=== PATIENT | male | born 2000 | race Caucasian/White ===

== ENCOUNTER 2022-10-12 19:49 | Emergency (ER) | payer OTHER ==
[2022-10-12 19:56] VITALS: TEMP 98.1
[2022-10-12] MEDS ORDERED: KETOROLAC 15 MG/ML 1 ML VIAL IVP STA (20:44)
[2022-10-12] MEDS ORDERED: ONDANSETRON 4 MG/2 ML VIAL IVP STA (20:44)
[2022-10-12] MEDS ORDERED: SODIUM CHLORIDE 0.9% 1,000 ML IV STA (20:44)
--- NOTE | 2022-10-12 20:53 | ED ---
Abdominal Pain HPI - General Chief Complaint: Abdominal Pain Stated Complaint: abd pain severe Time Seen by Provider: 10/12/22 20:35 Source: patient, RN notes reviewed Mode of arrival: ambulatory Limitations: no limitations - History of Present Illness Initial Comments: This is a 22-year-old male who presents to the emergency department for right flank and right lower quadrant pain. Patient states that this started yesterday. He reports associated loose don colored stools and orange appearing urine with dysuria. The only time that he has ever experienced pain like this was when he had his appendix removed. Also reports associated nausea and vo miting. Believes that he was just walking around when the pain started. Unsure if this was related to anything he had to eat. Denies any fevers, chills, sore throat, cough, dyspnea, chest pain, palpitations, or headaches. MD Complaint: abdominal pain, flank pain Onset/Timin -: days(s) Location: R flank Radiation: RLQ Associated Symptoms: nausea, vomiting, diarrhea, dysuria - Related Data Home Medications Medication Instructions Recorded Confirmed Melatonin 1 mg PO HS 10/12/22 10/12/22 Previous Rx's Medication Instructions Recorded levETIRAcetam [Keppra] 500 mg PO Q12HR 30 Days #60 tab 09/12/22 Dicyclomine [Bentyl] 10 mg PO QID PRN #20 capsule 10/13/22 Ondansetron Odt [Zofran Odt] 4 mg PO Q8HR PRN #15 tab 10/13/22 Allergies Allergy/AdvReac Type Severity Reaction Status Date / Time amoxicillin Allergy Anaphylaxis Verified 10/12/22 21:42 lavender (Lavandula Allergy Anaphylaxis Verified 10/12/22 21:42 angustifolia) Penicillins Allergy Anaphylaxis Verified 10/12/22 21:42 shellfish derived [Shellfish] Allergy Anaphylaxis Verified 10/12/22 21:42 Review of Systems ROS Statement: Those systems with pertinent positive or pertinent negative responses have been documented in the HPI. ROS Other: All systems not noted in ROS Statement are negative. Past Medical History Past Medical History: Seizure Disorder Additional Past Medical History / Comment(s): possibly epilepsy History of Any Multi-Drug Resistant Organisms: None Reported Past Surgical History: Appendectomy, Orthopedic Surgery Additional Past Surgical History / Comment(s): broken jaw wired Past Anesthesia/Blood Transfusion Reactions: Previous Problems w/ Anesthesia Past Psychological History: ADD/ADHD, Anxiety, Bipolar, Depression, Schizophrenia Smoking Status: Current every day smoker, Vaper Past Alcohol Use History: Rare Past Drug Use History: Marijuana - Past Family History Mother Family Medical History: Blood Disorder General Exam Limitations: no limitations General appearance: alert, in no apparent distress Head exam: Present: atraumatic, normocephalic, normal inspection Respiratory exam: Present: normal lung sounds bilaterally. Absent: respiratory distress, wheezes, rales, rhonchi, stridor Cardiovascular Exam: Present: regular rate, normal rhythm, normal heart sounds. Absent: systolic murmur, diastolic murmur, rubs, gallop, clicks GI/Abdominal exam: Present: soft, tenderness (Right upper quadrant, right mid abdomen, and right lower quadrant), normal bowel sounds. Absent: distended, guarding, rebound, rigid Neurological exam: Present: alert, oriented X3, CN II-XII intact Psychiatric exam: Present: normal affect, normal mood Skin exam: Present: warm, dry, intact, normal color. Absent: rash Course Vital Signs 10/12/22 10/13/22 19:52 01:39 Temperature 98.1 F Pulse Rate 115 H 79 Respiratory 18 16 Rate Blood Pressure 98/68 115/64 O2 Sat by Pulse 98 96 Oximetry Medical Decision Making - Medical Decision Making This is a 22-year-old male who presents to the emergency department for right flank and right mid to lower abdominal pain. Was pt. sent in by a medical professional or institution? @ -No Did you speak to anyone other than the patient for history? @ -His significant other Did you review nursing and triage notes? @ -Yes, and I agree, it is accurate with regards to the patient's symptoms. Were old charts reviewed? @ -No Differential Diagnosis? @ -Differential Abdominal Pain Men: Appendicitis, cholecystitis, diverticulosis, ischemic bowel, pancreatitis, hepatitis, UTI, gastroenteritis, AAA, incarcerated hernia, bowel obstruction, constipation, inflammatory bowel, hepatitis, peptic ulcer disease, splenic infarction, perforated viscus, testicular torsion, this is not meant to be an all-inclusive list CT interpreted by me (1pt min.)? @ -Computed tomography scan of the abdomen and pelvis obtained. My interpretation identifies no evidence of bowel wall thickening or ureteral calculus. U/S interpreted by me (1pt. min.)? @ -Gallbladder ultrasound obtained. My interpretation identifies no evidence of cholelithiasis or gallbladder wall thickening. What testing was considered but not performed? (CT, X-rays, U/S, labs)? Why? @ -None What meds were considered but not given? Why? @ -None Did you discuss the management of the patient with other professionals? @ -No Did you reconcile home meds? @ -No Was smoking cessation discussed for >3mins.? @ -No Was critical care preformed (if so, how long)? @ -No Were there social determinants of health that impacted care today? How? (Homelessness, low income, unemployed, alcoholism, drug addiction, transportation, low edu. Level, literacy, decrease access to med. care, shelter, rehab)? @ -No Was there de-escalation of care discussed even if they declined? (Discuss DNR or withdrawal of care, Hospice)? @ -No What co-morbidities impacted this encounter? (DM, HTN, Smoking, COPD, CAD, Ca ncer, CVA, Hep., AIDS, mental health diagnosis, sleep apnea, morbid obesity)? @ -Morbid obesity Was patient admitted / discharged? @ -Discharged. Lab work obtained and found to be nonactionable. Computed tomography scan of the abdomen and pelvis obtained initially due to suspicion of kidney stone. This revealed no evidence of a kidney stone or other acute findings. Gallbladder ultrasound was then obtained, as cholecystitis or cholelithiasis was also on the differential. This again revealed no acute process. His pain was not controlled with IV fluids, Toradol, and morphine. We then tried a GI cocktail, which again offered no improvement to his symptoms. Finally, Norflex and Dilaudid were provided, which only offered minor relief. Despite the patient continuing to complain of pain, he was not exhibiting any signs of distress and was sleeping in the bed playing video games. Discussed with the patient that we do not have a clear cause for his symptoms at this point. This may be related to a gas buildup, gastroenteritis, or a muscular problem. Prescriptions for Bentyl and Zofran provided with dosing instructions reviewed. Recommended he also alternate with Ibuprofen and Tylenol. He is advised to become established with a primary care provider for ongoing medical management. He was given information on discharge paperwork for several local primary care providers. He was also given information for gastroenterology follow-up if symptoms do not improve. Discussed that he may benefit from a HIDA scan in the event he has poor gallbladder function. Undiagnosed new problem with uncertain prognosis? @ -None Drug Therapy requiring intensive monitoring for toxicity (Heparin, Nitro, Insulin, Cardizem)? @ -None Were any procedures done? @ -None Diagnosis/symptom? @ -Abdominal pain Acute, or Chronic, or Acute on Chronic? @ -Acute Uncomplicated (without systemic symptoms) or Complicated (systemic symptoms)? @ -Uncomplicated Side effects of treatment? @ -None Exacerbation, Progression, or Severe Exacerbation] @ -Not applicable Poses a threat to life or bodily function? @ -No Return precautions reviewed in depth, the patient is instructed to return to the emergency department with any new, worsening, or concerning symptoms. Patient verbalized understanding. This case was discussed in detail with the attending ED physician, Dr. Randle. Presentation, findings, and treatment plan discussed in detail as well. - Lab Data Result diagrams: 10/12/22 21:37 10/12/22 21:37 Lab Results 10/12/22 10/12/22 10/12/22 Range/Units 00:35 21:37 21:37 WBC 6.9 (3.8-10.6) k/uL RBC 5.92 H (4.30-5.90) m/uL Hgb 17.6 H (13.0-17.5) gm/dL Hct 50.6 (39.0-53.0) % MCV 85.5 (80.0-100.0) fL MCH 29.8 (25.0-35.0) pg MCHC 34.8 (31.0-37.0) g/dL RDW 12.8 (11.5-15.5) % Plt Count 309 (150-450) k/uL MPV 6.9 Neutrophils % 59 % Lymphocytes % 30 % Monocytes % 6 % Eosinophils % 3 % Basophils % 1 % Neutrophils # 4.1 (1.3-7.7) k/uL Lymphocytes # 2.1 (1.0-4.8) k/uL Monocytes # 0.4 (0-1.0) k/uL Eosinophils # 0.2 (0-0.7) k/uL Basophils # 0.0 (0-0.2) k/uL Sodium 141 (137-145) mmol/L Potassium 4.3 (3.5-5.1) mmol/L Chloride 109 H (98-107) mmol/L Carbon Dioxide 23 (22-30) mmol/L Anion Gap 9 mmol/L BUN 14 (9-20) mg/dL Creatinine 0.98 (0.66-1.25) mg/dL Est GFR (CKD-EPI)AfAm >90 (>60 ml/min/1.73 sqM) Est GFR (CKD-EPI)NonAf >90 (>60 ml/min/1.73 sqM) Glucose 87 (74-99) mg/dL Plasma Lactic Acid Efrain (0.7-2.0) mmol/L Calcium 8.9 (8.4-10.2) mg/dL Total Bilirubin 0.6 (0.2-1.3) mg/dL AST 36 (17-59) U/L ALT 70 H (4-49) U/L Alkaline Phosphatase 68 (38-126) U/L Total Protein 6.7 (6.3-8.2) g/dL Albumin 4.0 (3.5-5.0) g/dL Amylase 55 (30-110) U/L Lipase 58 (23-300) U/L Urine Color Yellow Urine Appearance Clear (Clear) Urine pH 6.5 (5.0-8.0) Ur Specific Almond 1.029 (1.001-1.035) Urine Protein Trace H (Negative) Urine Glucose (UA) Negative (Negative) Urine Ketones Negative (Negative) Urine Blood Negative (Negative) Urine Nitrite Negative (Negative) Urine Bilirubin Negative (Negative) Urine Urobilinogen 2.0 (<2.0) mg/dL Ur Leukocyte Esterase Negative (Negative) 10/12/22 Range/Units 21:37 WBC (3.8-10.6) k/uL RBC (4.30-5.90) m/uL Hgb (13.0-17.5) gm/dL Hct (39.0-53.0) % MCV (80.0-100.0) fL MCH (25.0-35.0) pg MCHC (31.0-37.0) g/dL RDW (11.5-15.5) % Plt Count (150-450) k/uL MPV Neutrophils % % Lymphocytes % % Monocytes % % Eosinophils % % Basophils % % Neutrophils # (1.3-7.7) k/uL Lymphocytes # (1.0-4.8) k/uL Monocytes # (0-1.0) k/uL Eosinophils # (0-0.7) k/uL Basophils # (0-0.2) k/uL Sodium (137-145) mmol/L Potassium (3.5-5.1) mmol/L Chloride (98-107) mmol/L Carbon Dioxide (22-30) mmol/L Anion Gap mmol/L BUN (9-20) mg/dL Creatinine (0.66-1.25) mg/dL Est GFR (CKD-EPI)AfAm (>60 ml/min/1.73 sqM) Est GFR (CKD-EPI)NonAf (>60 ml/min/1.73 sqM) Glucose (74-99) mg/dL Plasma Lactic Acid Efrain 1.5 (0.7-2.0) mmol/L Calcium (8.4-10.2) mg/dL Total Bilirubin (0.2-1.3) mg/dL AST (17-59) U/L ALT (4-49) U/L Alkaline Phosphatase (38-126) U/L Total Protein (6.3-8.2) g/dL Albumin (3.5-5.0) g/dL Amylase (30-110) U/L Lipase (23-300) U/L Urine Color Urine Appearance (Clear) Urine pH (5.0-8.0) Ur Specific Almond (1.001-1.035) Urine Protein (Negative) Urine Glucose (UA) (Negative) Urine Ketones (Negative) Urine Blood (Negative) Urine Nitrite (Negative) Urine Bilirubin (Negative) Urine Urobilinogen (<2.0) mg/dL Ur Leukocyte Esterase (Negative) - Radiology Data Radiology results: report reviewed, image reviewed Disposition Clinical Impression: Abdominal pain Disposition: HOME SELF-CARE Instructions (If sedation given, give patient instructions): Abdominal Pain (ED) Additional Instructions: Return to the emergency department with any new, worsening, or concerning symptoms. You can try taking the Bentyl up to 4 times daily as needed for abdominal pain. Take the Zofran every 8 hours as needed for nausea and vomiting. He can also purchase an [id number] antidiarrheal medication like Imodium. Contact Dr. Tumma, gastroenterology, as listed below first thing tomorrow morning for a follow-up appointment and reevaluation of ongoing symptoms. You also need to become established with a primary care provider for ongoing management of your health. I have listed several primary care providers below who you can contact. Prescriptions: Dicyclomine [Bentyl] 10 mg PO QID PRN #20 capsule PRN Reason: Pain Ondansetron Odt [Zofran Odt] 4 mg PO Q8HR PRN #15 tab PRN Reason: Nausea And Vomiting Is patient prescribed a controlled substance at d/c from ED?: No Referrals: None,Stated [Primary Care Provider] - 1-2 days Myriam Vila MD [STAFF PHYSICIAN] - 1-2 days Michelle Delacruz MD [REFERRING] - 1-2 days Erica Gonzalez MD [STAFF PHYSICIAN] - 1-2 days Jose Manuel Jr, DO [Doctor of Osteopathic Medicine] - 1-2 days Dee Dey NPC [STAFF PHYSICIAN] - 1-2 days Rossy Burnette DO [REFERRING] - 1-2 days Kolton Bass DO [STAFF PHYSICIAN] - 1-2 days
[2022-10-12 22:12] LABS: Basophils % (A) 1 %; Eosinophils # (A) 0.2 k/uL (0-0.7); Eosinophils % (A) 3 %; HCT 50.6 % (39.0-53.0); HGB 17.6 gm/dL (13.0-17.5); Lymphocytes # (A) 2.1 k/uL (1.0-4.8); Lymphocytes % (A) 30 %; MCH 29.8 pg (25.0-35.0); MCHC 34.8 g/dL (31.0-37.0); MCV 85.5 fL (80.0-100.0); Mean Platelet Volume 6.9; Monocytes # (A) 0.4 k/uL (0-1.0); Monocytes % (A) 6 %; Neutrophils # (A) 4.1 k/uL (1.3-7.7); Neutrophils % (A) 59 %; Platelet Count 309 k/uL (150-450); RBC 5.92 m/uL (4.30-5.90); RDW 12.8 % (11.5-15.5); WBC 6.9 k/uL (3.8-10.6)
[2022-10-12 22:38] LABS: ALT 70 U/L (4-49); AST 36 U/L (17-59); African American GFR (CKD) >90 (>60 ml/min/1.73 sqM); Alkaline Phosphatase 68 U/L (38-126); Amylase 55 U/L (30-110); Anion Gap 9 mmol/L; Blood Urea Nitrogen 14 mg/dL (9-20); Calcium 8.9 mg/dL (8.4-10.2); Carbon Dioxide 23 mmol/L (22-30); Chloride 109 mmol/L (98-107); Glucose 87 mg/dL (74-99); Lipase 58 U/L (23-300); Non-African American GFR(CKD) >90 (>60 ml/min/1.73 sqM); Potassium 4.3 mmol/L (3.5-5.1); Sodium 141 mmol/L (137-145); Total Bilirubin 0.6 mg/dL (0.2-1.3); Total Protein 6.7 g/dL (6.3-8.2)
--- NOTE | 2022-10-12 22:49 | CT ---
EXAMINATION TYPE: CT abdomen pelvis wo con DATE OF EXAM: 10/12/2022 COMPARISON: None HISTORY: RLQ pain. hx of appendectomy CT DLP: 1066.5 mGycm Automated exposure control for dose reduction was used. Images obtained from the diaphragm to the floor the pelvis with no contrast The lung bases are clear. No pleural effusion. Heart size is normal. No pericardial effusion. Liver s pleen and stomach pancreas and gallbladder appear intact. The bile ducts are not dilated. There is no adrenal mass kidney show normal size and contour. No hydronephrosis. Ureters are not dila bernadette. No retroperitoneal adenopathy. There are clips from appendectomy. The bladder distends smoothly. No inguinal hernia. No evidence of a pelvic mass. No free fluid in the pelvis. The lumbar vertebra have normal alignment. Posterior elements are intact. No compression fracture. Th e bony pelvis is intact. The hip joints are intact. Sacroiliac joints are intact. There is no mesenteric edema. No ascites or free air. No sign of a bowel obstruction. Small bowel pat tern is normal. No intestinal wall thickening. There is 2 cm fat-containing umbilical hernia IMPRESSION: Negative CT scan abdomen and pelvis.
[2022-10-12] MEDS ORDERED: DIPH,PERTUS(ACELL)TETVAC-LF 0.5 ML VIAL IM ONE (22:56)
[2022-10-12] MEDS ORDERED: MORPHINE SULFATE 2 MG/ML SYRINGE IVP STA (22:58)
--- NOTE | 2022-10-12 23:30 | US ---
EXAMINATION TYPE: US gallbladder DATE OF EXAM: 10/12/2022 COMPARISON: CT:Today CLINICAL HISTORY: RUQ pain. RUQ pain. Pt states he has been NPO x 5 hours TECHNIQUE: Multiple sonographic images of the right upper quadrant are obtained. FINDINGS: EXAM MEASUREMENTS: Liver Length: 15.9 cm Gallbladder Wall: 0.52 cm CBD: 0.3 cm Right Kidney: 11.1 x 4.8 x 4.9 cm PREVENTIVE MEDICINE OFFICER NOTES: Pancreas: Only head visible. Appears wnl Liver: Heterogeneous Gallbladder: Contracted Evidence for sonographic Anderson's sign: No CBD: wnl Right Kidney: wnl IMPRESSION: Contracted gallbladder. No gallstones or dilated ducts. No focal liver defect.
[2022-10-12] MEDS ORDERED: MAG HYDROX/AL HYDROX/SIMETH 30 ML, HYOSCYAMINE ELIXIR 10 ML, LIDOCAINE VISCOUS 2% 10 ML PO STA ×3 (23:32)
[2022-10-13] MEDS ORDERED: ORPHENADRINE 30 MG/ML 2 ML VIAL IVP STA (00:27)
[2022-10-13] MEDS ORDERED: HYDROmorphone 0.5 MG/0.5 ML SYRINGE IVP STA (00:27)
[2022-10-13 00:52] LABS: Appearance,Urine Clear (Clear); Bilirubin,Urine Negative (Negative); Blood,Urine Negative (Negative); Color,Urine Yellow; Glucose,Urine (UA) Negative (Negative); Ketones,Urine Negative (Negative); Leukocyte Esterase,Urine Negative (Negative); Nitrite,Urine Negative (Negative); PH, Urine 6.5 (5.0-8.0); Protein,Urine Trace (Negative); Specific Gravity,Urine 1.029 (1.001-1.035)
[2022-10-13] MEDS ORDERED: traMADol 50 MG STARTER PACK 3 TAB BTL PO STA (00:55)
[2022-10-13] MEDS ORDERED: ONDANSETRON 4 MG ODT STARTER PACK 2 TAB BTL PO STA (00:55)
[2022-10-13] MEDS ORDERED: IBUPROFEN 600 MG STARTER PACK 4 TAB BTL PO STA (00:55)
[2022-10-13] MEDS ORDERED: DIPHENOX-ATROP STARTER PACK 8 TAB BTL PO STA (00:56)
[2022-10-13 01:40] VITALS: BP 115/64; PULSE 79; RESP 16
== END 2022-10-13 01:40 | disposition home or self-care (01) ==
LOC: EC 19:49
DX: R10.31 Right lower quadrant pain (principal); R10.11 Right upper quadrant pain; F17.290 Nicotine dependence, other tobacco product, uncomplicated; F12.90 Cannabis use, unspecified, uncomplicated; Z88.1 Allergy status to other antibiotic agents; Z88.0 Allergy status to penicillin; Z91.013 Allergy to seafood; Z91.048 Other nonmedicinal substance allergy status; Z90.89 Acquired absence of other organs
CPT/HCPCS: 80053; 82150; 83605; 83690; 85025; 76705; 74176; 99284; 96374; 96375 ×2; 96361; J2405; J2270; J1885; 36415; 81003

== ENCOUNTER 2022-10-17 23:59 | Emergency (ER) | payer OTHER ==
[2022-10-18 00:05] VITALS: TEMP 98.1
[2022-10-18] MEDS ORDERED: SODIUM CHLORIDE 0.9% 500 ML 500 ML IV STA (00:46)
[2022-10-18] MEDS ORDERED: diphenhydrAMINE 50 MG CAP PO STA (00:46)
[2022-10-18] MEDS ORDERED: FAMOTIDINE 20 MG/2 ML VIAL IV STA (00:46)
[2022-10-18] MEDS ORDERED: methylPREDNISolone SOD SUCCI 125 MG/2 ML VIAL IV STA (00:46)
--- NOTE | 2022-10-18 00:50 | ED ---
Allergic Reaction HPI - General Chief complaint: Allergic Reaction Stated complaint: Allergic Reaction, Difficulty Breathing Time Seen by Provider: 10/18/22 00:39 Source: patient, family, RN notes reviewed, old records reviewed Mode of arrival: ambulatory - History of Present Illness Initial Comments: This is a nontoxic-appearing 22-year-old male that presents to the emergency room with his girlfriend with complaints of ALLERGIC reaction after eating lobster about 3 hours prior to arrival. Patient states he developed abdominal pain with nausea and vomiting, facial rash, chest tightness and headache. He did not take any medication prior to arriving in the emergency room. States that his symptoms seem to be resolving without medication. Girlfriend at bedside states that she did notice a rash to his chest, neck and right side of his face which also seems to be nearly resolved. Patient denies any difficulty in breathing, complaining only of headache and eyes itching at this time. MD Complaint: allergic reaction -: hour(s) (3) Exposure: food (lobster) Symptoms: rash, itching, nausea, vomiting, other (headache), abdominal pain Severity: mild Treatment Prior to Arrival: none - Related Data Home Medications Medication Instructions Recorded Confirmed Melatonin 1 mg PO HS 10/12/22 10/12/22 Previous Rx's Medication Instructions Recorded levETIRAcetam [Keppra] 500 mg PO Q12HR 30 Days #60 tab 09/12/22 Dicyclomine [Bentyl] 10 mg PO QID PRN #20 capsule 10/13/22 Ondansetron Odt [Zofran Odt] 4 mg PO Q8HR PRN #15 tab 10/13/22 EPINEPHrine (Auto Inject) [Epipen] 0.3 mg IM ONCE PRN #1 each 10/18/22 Allergies Allergy/AdvReac Type Severity Reaction Status Date / Time amoxicillin Allergy Anaphylaxis Verified 10/18/22 00:05 lavender (Lavandula Allergy Anaphylaxis Verified 10/18/22 00:05 angustifolia) Penicillins Allergy Anaphylaxis Verified 10/18/22 00:05 shellfish derived [Shellfish] Allergy Anaphylaxis Verified 10/18/22 00:05 Review of Systems ROS Statement: Those systems with pertinent positive or pertinent negative responses have been documented in the HPI. ROS Other: All systems not noted in ROS Statement are negative. Past Medical History Past Medical History: Seizure Disorder Additional Past Medical History / Comment(s): possibly epilepsy History of Any Multi-Drug Resistant Organisms: None Reported Past Surgical History: Appendectomy, Orthopedic Surgery Additional Past Surgical History / Comment(s): broken jaw wired Past Anesthesia/Blood Transfusion Reactions: Previous Problems w/ Anesthesia Past Psychological History: ADD/ADHD, Anxiety, Bipolar, Depression, Schizophrenia Smoking Status: Current every day smoker, Vaper Past Alcohol Use History: Rare Past Drug Use History: Marijuana - Past Family History Mother Family Medical History: Blood Disorder General Exam Limitations: no limitations General appearance: alert, in no apparent distress Head exam: Present: atraumatic, normocephalic Eye exam: Present: normal appearance. Absent: scleral icterus, conjunctival injection, periorbital swelling, periorbital tenderness ENT exam: Present: normal oropharynx, mucous membranes moist Neck exam: Present: normal inspection, full ROM. Absent: tenderness, meningismus, lymphadenopathy Respiratory exam: Present: normal lung sounds bilaterally. Absent: respiratory distress, accessory muscle use Cardiovascular Exam: Present: tachycardia GI/Abdominal exam: Present: soft. Absent: distended, tenderness, guarding, rebound, rigid Extremities exam: Present: full ROM, normal capillary refill. Absent: tenderness, pedal edema, calf tenderness Back exam: Present: full ROM. Absent: tenderness, CVA tenderness (R), CVA tenderness (L), rash noted Neurological exam: Present: alert, oriented X3, normal gait Psychiatric exam: Present: normal affect, normal mood Skin exam: Present: warm, dry, intact, normal color, rash (hives to right side of neck and right chest wall). Absent: cyanosis, diaphoretic, erythema, vesic les, petechiae, pallor, mottled Course Vital Signs 10/18/22 10/18/22 10/18/22 00:02 00:38 00:39 Temperature 98.1 F Pulse Rate 131 H 108 H 92 Respiratory 26 H 20 18 Rate Blood Pressure 115/55 107/73 107/73 O2 Sat by Pulse 96 Oximetry 10/18/22 10/18/22 10/18/22 00:45 01:00 01:30 Temperature Pulse Rate 121 H 87 90 Respiratory 22 20 14 Rate Blood Pressure 107/73 103/73 132/99 O2 Sat by Pulse 96 Oximetry 10/18/22 02:00 Temperature Pulse Rate 84 Respiratory 16 Rate Blood Pressure 129/84 O2 Sat by Pulse 98 Oximetry Medical Decision Making - Medical Decision Making Patient presents with an ALLERGIC reaction after eating lobster today with a known seafood ALLERGY. He was given Benadryl, Pepcid and Solu-Medrol with IV fluids in the emergency room. Lung sounds are clear to auscultation, no stridor. Vital signs are stable. Abdomen soft and nontender. There is no evidence of tongue swelling or airway compromise. Vital signs remained stable throughout his stay in the emergency room. Patient states he has a history of seizure disorder. Medical records indicate he also has a history of schizophrenia, bipolar, anxiety, depression and ADHD. Patient states did have a recent inpatient stay for chest pain and according to records acute coronary event was ruled out. Anxiety with panic disorder was considered. Cardiology consult and echocardiogram was done 09/12/2022 showing normal left ventricular systolic function normal pericardium without effusion, chronic regurgitation knee no aortic regurgitation trace to mild tricuspid regurgitation Patient was watched in the emergency room with no complications. Discharged home with an EpiPen and directed to follow up with a primary care doctor. He states that he is in the process of getting a primary care doctor as he recently moved here from [place]. He was given 2 additional referrals for follow-up. Patient is and his girlfriend are agreeable to this plan of care. Case discussed with Dr. Julian. Was pt. sent in by a medical professional or institution (, PA, CARTOGRAPHY PROFESSOR, urgent care, hospital, or snf...) When possible be specific @ -No Did you speak to anyone other than the patient for history (EMS, parent, family, police, friend...)? What history was obtained from this source @ -patient's girlfriend at bedside Did you review nursing and triage notes (agree or disagree)? Why? @ -I reviewed and agree with nursing and triage notes Were old charts reviewed (outside hosp., previous admission, EMS record, old EKG, old radiological studies, urgent care reports/EKG's, snf records)? Report findings @ -yes as above Differential Diagnosis (chest pain, altered mental status, abdominal pain women, abdominal pain men, vaginal bleeding, weakness, fever, dyspnea, syncope, headache, dizziness, GI bleed, back pain, seizure, CVA, palpatations, mental health, musculoskeletal)? @ -ALLERGIC reaction, anaphylaxis, anxiety, gastroenteritis, viral illness, aspiration EKG interpreted by me (3pts min.). @ -n/a X-rays interpreted by me (1pt min.). @ -None done CT interpreted by me (1pt min.). @ -None done U/S interpreted by me (1pt. min.). @ -None done What testing was considered but not performed or refused? (CT, X-rays, U/S, labs)? Why? @ -None What meds were considered but not given or refused? Why? @ -None Did you discuss the management of the patient with other professionals (professionals i.e. Dr., PA, CARTOGRAPHY PROFESSOR, lab, RT, psych nurse, licensed social worker, blade bender furnace tender, teacher, human resource officer, piano case and bench assembler)? Give summary @ -No Was smoking cessation discussed for >3mins.? @ -No Was critical care preformed (if so, how long)? @ -No Were there social determinants of health that impacted care today? How? (Homelessness, low income, unemployed, alcoholism, drug addiction, transportation, low edu. Level, literacy, decrease access to med. care, nursing home, rehab)? @ -Patient states does not have a primary care doctor Was there de-escalation of care discussed even if they declined (Discuss DNR or withdrawal of care, Hospice)? DNR status @ -No What co-morbidities impacted this encounter? (DM, HTN, Smoking, COPD, CAD, Cancer, CVA, ARF, Chemo, Hep., AIDS, mental health diagnosis, sleep apnea, morbid obesity)? @ -seizure disorder, schizophrenia, bipolar, anxiety, depression and ADHD Was patient admitted / discharged? Hospital course, mention meds given and route, prescriptions, significant lab abnormalities, going to OR and other pertinent info. @ -Discharged Undiagnosed new problem with uncertain prognosis? @ -No Drug Therapy requiring intensive monitoring for toxicity (Heparin, Nitro, Insulin, Cardizem)? @ -No Were any procedures done? @ -No Diagnosis/symptom? @ -ALLERGIC reaction Acute, or Chronic, or Acute on Chronic? @ -Acute Uncomplicated (without systemic symptoms) or Complicated (systemic symptoms)? @ -Uncomplicated Side effects of treatment? @ -No Exacerbation, Progression, or Severe Exacerbation? @ -No Poses a threat to life or bodily function? How? (Chest pain, [place], AR, pneumonia, PE, COPD, DKA, ARF, appy, cholecystitis, CVA, Diverticulitis, Homicidal, Suicidal, threat to staff... and all critical care pts) @ -No Disposition Clinical Impression: Allergic reaction Disposition: HOME SELF-CARE Condition: Good Instructions (If sedation given, give patient instructions): Anaphylaxis (ED) Additional Instructions: Please use the EpiPen with any ALLERGIC reaction that causes shortness of breath, facial or tongue swelling then go to the nearest emergency room. Prescriptions: EPINEPHrine (Auto Inject) [Epipen] 0.3 mg IM ONCE PRN #1 each PRN Reason: Anaphylaxis Is patient prescribed a controlled substance at d/c from ED?: No Referrals: None,Stated [Primary Care Provider] - 1-2 days Reggie Fuller MD [STAFF PHYSICIAN] - 1-2 days Kierra Resendiz MD [REFERRING] - 1-2 days Time of Disposition: 01:55
[2022-10-18] MEDS ORDERED: diphenhydrAMINE 50 MG/ML 1 ML VIAL IVP STA (01:01)
[2022-10-18 02:09] VITALS: BP 129/84; PULSE 84; RESP 16
== END 2022-10-18 02:14 | disposition home or self-care (01) ==
LOC: EC 23:59
DX: T78.40XA Allergy, unspecified, initial encounter (principal); F90.9 Attention-deficit hyperactivity disorder, unspecified type; F41.9 Anxiety disorder, unspecified; F31.9 Bipolar disorder, unspecified; F17.290 Nicotine dependence, other tobacco product, uncomplicated; F12.90 Cannabis use, unspecified, uncomplicated; Z88.0 Allergy status to penicillin; Z88.6 Allergy status to analgesic agent; Z91.013 Allergy to seafood
CPT/HCPCS: 99284; 96374; 96375 ×2; J1200; J2930

== ENCOUNTER 2022-11-02 23:47 | Emergency (ER) | payer OTHER ==
[2022-11-03] MEDS ORDERED: KETOROLAC 15 MG/ML 1 ML VIAL IVP STA (00:13)
[2022-11-03] MEDS ORDERED: METOCLOPRAMIDE 5 MG/ML 2 ML VIAL IVP STA (00:13)
[2022-11-03] MEDS ORDERED: SODIUM CHLORIDE 0.9% 1,000 ML IV STA (00:14)
[2022-11-03] MEDS ORDERED: ORPHENADRINE 30 MG/ML 2 ML VIAL IVP STA (00:18)
--- NOTE | 2022-11-03 00:23 | ED ---
Chest Pain HPI - General Chief Complaint: Chest Pain Stated Complaint: Chest Pain Time Seen by Provider: 11/02/22 23:59 Source: patient, family, RN notes reviewed Mode of arrival: EMS Limitations: no limitations - History of Present Illness Initial Comments: This is a 22-year-old male who presents to the emergency department for chest pain. States that this started approximately 1.5 hours prior to arrival. Describes this as a substernal pressure/tightness. He has associated nausea/vomiting and coughing. Denies any shortness of breath. Symptoms all started earlier today. He was given Zofran en route by EMS with only mild improvement in the nausea. He has a family history of cardiac problems in his mother. States that she of cardiac problems in her 40s. Believes that she had an enlarged heart. He was admitted here in August for cardiac rule out and workup was found to be entirely negative. Symptoms suspected to be related to a musculoskeletal problem, as it did resolve with NSAIDs and muscle relaxants. Symptoms also thought to be possibly related to a panic attack. Additionally, he reports left hand pain. States that last night he got mad and punched a concrete wall. He does have minor associated swelling and bruising near the left pinky finger. Denies any fevers, chills, sore throat, dyspnea, palpitations, abdominal pain, diarrhea, back pain, or headaches. MD Complaint: chest pain Onset: during rest Pain Location: substernal - Related Data Home Medications Medication Instructions Recorded Confirmed Melatonin 1 mg PO HS 10/12/22 10/12/22 Previous Rx's Medication Instructions Recorded levETIRAcetam [Keppra] 500 mg PO Q12HR 30 Days #60 tab 09/12/22 Dicyclomine [Bentyl] 10 mg PO QID PRN #20 capsule 10/13/22 Ondansetron Odt [Zofran Odt] 4 mg PO Q8HR PRN #15 tab 10/13/22 EPINEPHrine (Auto Inject) [Epipen] 0.3 mg IM ONCE PRN #1 each 10/18/22 Allergies Allergy/AdvReac Type Severity Reaction Status Date / Time amoxicillin Allergy Anaphylaxis Verified 10/18/22 00:05 lavender (Lavandula Allergy Anaphylaxis Verified 10/18/22 00:05 angustifolia) Penicillins Allergy Anaphylaxis Verified 10/18/22 00:05 shellfish derived [Shellfish] Allergy Anaphylaxis Verified 10/18/22 00:05 Review of Systems ROS Statement: Those systems with pertinent positive or pertinent negative responses have been documented in the HPI. ROS Other: All systems not noted in ROS Statement are negative. Past Medical History Past Medical History: Seizure Disorder Additional Past Medical History / Comment(s): possibly epilepsy History of Any Multi-Drug Resistant Organisms: None Reported Past Surgical History: Appendectomy, Orthopedic Surgery Additional Past Surgical History / Comment(s): broken jaw wired Past Anesthesia/Blood Transfusion Reactions: Previous Problems w/ Anesthesia Past Psychological History: ADD/ADHD, Anxiety, Bipolar, Depression, Schizophrenia Smoking Status: Current every day smoker, Vaper Past Alcohol Use History: Rare Past Drug Use History: Marijuana - Past Family History Mother Family Medical History: Blood Disorder General Exam Limitations: no limitations General appearance: alert, in no apparent distress Head exam: Present: atraumatic, normocephalic, normal inspection Respiratory exam: Present: normal lung sounds bilaterally. Absent: respiratory distress, wheezes, rales, rhonchi, stridor, chest wall tenderness Cardiovascular Exam: Present: regular rate, normal rhythm, normal heart sounds. Absent: systolic murmur, diastolic murmur, rubs, gallop, clicks Extremities exam: Present: other (Minor tenderness and ecchymosis over the left fifth MCP joint. Full active and passive range of motion of all 5 digits.) Neurological exam: Present: alert, oriented X3, CN II-XII intact Psychiatric exam: Present: normal affect, normal mood Skin exam: Present: warm, dry, intact, normal color. Absent: rash Course Vital Signs 11/03/22 11/03/22 00:40 02:04 Pulse Rate 93 85 Respiratory 18 18 Rate Blood Pressure 121/80 102/60 Chest Pain MDM - MDM This is a 22-year-old male who presents to the emergency department for chest pain. Was pt. sent in by a medical professional or institution? @ -No Did you speak to anyone other than the patient for history? @ -No Did you review nursing and triage notes? @ -Yes, and I agree, it is accurate with regards to the patient's symptoms. Were old charts reviewed? @ -Yes, admission records from 09/11-09/13 including echocardiogram and cardiol ogy consultation. Differential Diagnosis? @ -Differential Chest Pain: Stable Angina, Unstable Angina, STEMI, NSTEMI Aortic Dissection, Pneumothorax, Musculoskeletal, Esophageal Spasm GERD, Cholecystitis, Pancreatitis, Zoster, this is not meant to be an all-inclusive list. EKG interpreted by me (3pts min.)? @ -Sinus rhythm. Ventricular rate 82 bpm, NM interval 137 ms, QRS duration 88 ms, QTC 377 ms. X-rays interpreted by me (1pt min.)? @ -Chest x-ray obtained, my interpretation identifies no localized consolidations or infiltrates. X-ray of the left hand obtained as well. My interpretation identifies no acute fractures. What testing was considered but not performed? (CT, X-rays, U/S, labs)? Why? @ -None What meds were considered but not given? Why? @ -None Did you discuss the management of the patient with other professionals? @ -No Did you reconcile home meds? @ -No Was smoking cessation discussed for >3mins.? @ -No Was critical care preformed (if so, how long)? @ -No Were there social determinants of health that impacted care today? How? (Homelessness, low income, unemployed, alcoholism, drug addiction, transportation, low edu. Level, literacy, decrease access to med. care, longterm, rehab)? @ -No Was there de-escalation of care discussed even if they declined? (Discuss DNR or withdrawal of care, Hospice)? @ -No What co-morbidities impacted this encounter? (DM, HTN, Smoking, COPD, CAD, Cancer, CVA, Hep., AIDS, mental health diagnosis, sleep apnea, morbid obesity)? @ -None Was patient admitted / discharged? @ -Discharged. Lab work obtained and found be nonactionable including a negative troponin and d-dimer. He was given IV fluids, Reglan, Toradol, and Norflex with improvement in symptoms. Chest x-ray and x-ray of the left hand obtained revealing no acute findings. Advised that this is most likely musculoskeletal in nature. He was admitted in August of this year for chest pain and had a cardiac workup that was found to be entirely negative. Advised the patient that he needs to alternate with ibuprofen and Tylenol as needed for pain relief and he was given a starter pack for ibuprofen, and Flexeril, and Zofran. Advised that the Flexeril is sedating and he should avoid driving or operating machinery when taking this. Patient is also strongly encouraged to become established with a primary care provider for ongoing health management Undiagnosed new problem with uncertain prognosis? @ -None Drug Therapy requiring intensive monitoring for toxicity (Heparin, Nitro, Insulin, Cardizem)? @ -None Were any procedures done? @ -None Diagnosis/symptom? @ -Atypical chest pain, nausea Acute, or Chronic, or Acute on Chronic? @ -Acute Uncomplicated (without systemic symptoms) or Complicated (systemic symptoms)? @ -Uncomplicated Side effects of treatment? @ -None Exacerbation, Progression, or Severe Exacerbation] @ -Not applicable Poses a threat to life or bodily function? @ -No Return precautions reviewed in depth, the patient is instructed to return to the emergency department with any new, worsening, or concerning symptoms. Patient verbalized understanding. This case was discussed in detail with the attending ED physician, Dr. Randle. Presentation, findings, and treatment plan discussed in detail as well. Disposition Clinical Impression: Chest pain, Nausea Disposition: HOME SELF-CARE Instructions (If sedation given, give patient instructions): Noncardiac Chest Pain (ED) Additional Instructions: Return to the emergency department with any new, worsening, or concerning symptoms. Alternate with ibuprofen and Tylenol as needed for pain relief. You can take the muscle relaxant up to every 8 hours, however be aware that it may be sedating and you should avoid driving or operating machinery when taking this. Make sure that you become established with a primary care provider for ongoing health management. Is patient prescribed a controlled substance at d/c from ED?: No Referrals: None,Stated [Primary Care Provider] - 1-2 days
[2022-11-03 00:42] VITALS: RESP 18
[2022-11-03 00:49] LABS: Basophils # (A) 0.1 k/uL (0-0.2); Basophils % (A) 1 %; Eosinophils # (A) 0.2 k/uL (0-0.7); Eosinophils % (A) 2 %; HCT 45.5 % (39.0-53.0); HGB 15.9 gm/dL (13.0-17.5); Lymphocytes % (A) 25 %; MCHC 34.9 g/dL (31.0-37.0); MCV 85.7 fL (80.0-100.0); Mean Platelet Volume 7.1; Monocytes # (A) 0.4 k/uL (0-1.0); Monocytes % (A) 4 %; Neutrophils # (A) 5.3 k/uL (1.3-7.7); Neutrophils % (A) 66 %; Platelet Count 286 k/uL (150-450); RBC 5.31 m/uL (4.30-5.90); RDW 12.7 % (11.5-15.5)
[2022-11-03 01:05] LABS: ALT 70 U/L (4-49); AST 27 U/L (17-59); African American GFR (CKD) >90 (>60 ml/min/1.73 sqM); Albumin 4.1 g/dL (3.5-5.0); Alkaline Phosphatase 92 U/L (38-126); Anion Gap 8 mmol/L; Blood Urea Nitrogen 16 mg/dL (9-20); C Reactive Protein <0.5 mg/dL (<1.0); Calcium 9.1 mg/dL (8.4-10.2); Carbon Dioxide 24 mmol/L (22-30); Chloride 107 mmol/L (98-107); Glucose 99 mg/dL (74-99); Magnesium 1.9 mg/dL (1.6-2.3); Non-African American GFR(CKD) >90 (>60 ml/min/1.73 sqM); Potassium 4.1 mmol/L (3.5-5.1); Sodium 139 mmol/L (137-145); Total Bilirubin 0.3 mg/dL (0.2-1.3); Total Protein 6.6 g/dL (6.3-8.2)
[2022-11-03 01:21] LABS: Partial Thromboplastin Time 24.7 sec (22.0-30.0); Prothrombin Time 10.6 sec (9.0-12.0)
--- NOTE | 2022-11-03 02:32 | XR ---
EXAM: XR Chest, 2 Views CLINICAL HISTORY: ITS.REASON XR Reason: Chest Pain TECHNIQUE: Frontal and lateral views of the chest. COMPARISON: 09/11/2022 FINDINGS: Lungs: Unremarkable. No consolidation. Pleural space: Unremarkable. No pneumothorax. No pleural effusions. Heart: Unremarkable. No cardiomegaly. Mediastinum: Unremarkable. Bones/joints: No acute osseous abnormalities. IMPRESSION: Normal chest.
--- NOTE | 2022-11-03 02:37 | XR ---
EXAM: XR Left Hand Complete, 3 or More Views CLINICAL HISTORY: ITS.REASON XR Reason: Hand injury TECHNIQUE: Frontal, lateral and oblique views of the left hand. COMPARISON: No relevant prior studies available. FINDINGS: Bones/joints: Prominent interosseous space between the scaphoid, trapezoid, and capitate, likely developmental in nature. Carpal alignment appears maintained. No acute fracture or dislocation. Soft tissues: Unremarkable. No radiopaque foreign body. IMPRESSION: No acute findings in the left hand.
[2022-11-03] MEDS ORDERED: ONDANSETRON 4 MG ODT STARTER PACK 2 TAB BTL PO STA (02:43)
[2022-11-03] MEDS ORDERED: CYCLOBENZAPRINE 10MG STARTER 3 TAB BTL PO STA (02:43)
[2022-11-03] MEDS ORDERED: IBUPROFEN 600 MG STARTER PACK 4 TAB BTL PO STA (02:43)
[2022-11-03 04:17] VITALS: BP 130/76; PULSE 89
== END 2022-11-03 04:01 | disposition home or self-care (01) ==
LOC: EC 23:47
DX: R07.89 Other chest pain (principal); R11.0 Nausea; F31.9 Bipolar disorder, unspecified; F41.9 Anxiety disorder, unspecified; F17.290 Nicotine dependence, other tobacco product, uncomplicated; F12.90 Cannabis use, unspecified, uncomplicated; Z88.0 Allergy status to penicillin; Z88.8 Allergy status to other drugs, medicaments and biological substances; Z91.018 Allergy to other foods
CPT/HCPCS: 36415; 93005; 85379; 80053; 83735; 84484; 85025; 85610; 85730; 86140; 87636; 73130; 71046; 99285; 96374; 96375 ×2; 96361; J2360; J2765; J1885; S0119

== ENCOUNTER 2022-11-18 19:55 | Emergency (ER) | payer OTHER ==
[2022-11-18 20:01] VITALS: BP 122/71; PULSE 100; TEMP 98
--- NOTE | 2022-11-18 20:21 | ED ---
General Adult HPI - General Chief complaint: Upper Respiratory Infection Stated complaint: Chest tightness,sob Time Seen by Provider: 11/18/22 20:03 Source: patient, RN notes reviewed, old records reviewed Mode of arrival: ambulatory Limitations: no limitations - History of Present Illness Initial comments: Patient is a 22-year-old male who presents emergency Department complaining of upper respiratory symptoms. Has been having a productive cough of clear mucus for the last week. Also had an episode where he had a bloody nose and then was also spitting out blood from the bloody nose. This occurred one time. States she has been blowing his nose a lot, and has been having productive cough. Endorses some generalized chest tightness as well that is worse with coughing, and he states he is coughing constantly throughout the day. No focal pain. No cardiac disease. No history of asthma. Former tobacco user. Denies any nausea or vomiting. Does have an episode of diarrhea. Denies any abdominal pain. Denies any headaches. No known sick contacts. Endorses nasal congestion. Has no other acute complaints at this time. Denies sore throat. Concerned for upper extremity infection at this time. - Related Data Home Medications Medication Instructions Recorded Confirmed Melatonin 1 mg PO HS 10/12/22 10/12/22 Previous Rx's Medication Instructions Recorded levETIRAcetam [Keppra] 500 mg PO Q12HR 30 Days #60 tab 09/12/22 Dicyclomine [Bentyl] 10 mg PO QID PRN #20 capsule 10/13/22 Ondansetron Odt [Zofran Odt] 4 mg PO Q8HR PRN #15 tab 10/13/22 EPINEPHrine (Auto Inject) [Epipen] 0.3 mg IM ONCE PRN #1 each 10/18/22 Azithromycin [Zithromax] 250 mg PO DAILY 4 Days #4 tab 11/18/22 Allergies Allergy/AdvReac Type Severity Reaction Status Date / Time amoxicillin Allergy Anaphylaxis Verified 11/18/22 20:01 lavender (Lavandula Allergy Anaphylaxis Verified 11/18/22 20:01 angustifolia) Penicillins Allergy Anaphylaxis Verified 11/18/22 20:01 shellfish derived [Shellfish] Allergy Anaphylaxis Verified 11/18/22 20:01 Review of Systems ROS Statement: Those systems with pertinent positive or pertinent negative responses have been documented in the HPI. Review of Systems: CONST: Denies fever EYES: Denies blurry vision ENT: Endorses nasal congestion C/V: Denies Chest pain RESP: Endorses cough GI: Denies abdominal pain : Denies dysuria SKIN: Denies rash. MSK: Denies joint pain. NEURO: Denies headache ROS Other: All systems not noted in ROS Statement are negative. Past Medical History Past Medical History: Seizure Disorder Additional Past Medical History / Comment(s): possibly epilepsy History of Any Multi-Drug Resistant Organisms: None Reported Past Surgical History: Appendectomy, Orthopedic Surgery Additional Past Surgical History / Comment(s): broken jaw wired Past Anesthesia/Blood Transfusion Reactions: Previous Problems w/ Anesthesia Past Psychological History: ADD/ADHD, Anxiety, Bipolar, Depression, Schizophrenia Smoking Status: Current every day smoker, Vaper Past Alcohol Use History: Rare Past Drug Use History: Marijuana - Past Family History Mother Family Medical History: Blood Disorder General Exam - General Exam Comments Initial Comments: General: Appears in no acute distress. HEAD: Normal with no signs of head trauma. EYES: EOMI ENT: Hearing grossly intact, normal oropharynx. RESPIRATORY: Clear breath sounds bilaterally. No wheezes, rales, or rhonchi. No respiratory distress. No hypoxia. C/V: Regular rate and rhythm. S1 and S2 auscultated, no edema, peripheral pulses 2+ and intact throughout. Chest pain nonreproducible on palpation. ABD: Abd is soft, nontender, nondistended EXT: Normal range of motion, no obvious deformity SKIN: No rashes or lesions observed on exposed skin. NEURO: Alert and oriented 4. Limitations: no limitations Course Vital Signs 11/18/22 19:57 Temperature 98 F Pulse Rate 100 Respiratory 20 Rate Blood Pressure 122/71 O2 Sat by Pulse 96 Oximetry Medical Decision Making - Medical Decision Making Was pt. sent in by a medical professional or institution (, PA, BIODIESEL PRODUCT DEVELOPMENT MANAGER, urgent care, hospital, or longterm...) When possible be specific @ -No Did you speak to anyone other than the patient for history (EMS, parent, family, police, friend...)? What history was obtained from this source @ -No Did you review nursing and triage notes (agree or disagree)? Why? @ -I reviewed and agree with nursing and triage notes Were old charts reviewed (outside hosp., previous admission, EMS record, old EKG, old radiological studies, urgent care reports/EKG's, longterm records)? Report findings @ -No old charts were reviewed Differential Diagnosis (chest pain, altered mental status, abdominal pain women, abdominal pain men, vaginal bleeding, weakness, fever, dyspnea, syncope, headache, dizziness, GI bleed, back pain, seizure, CVA, palpatations, mental health, musculoskeletal)? @ -Viral URI, Covid 19 infection, influenza infection, pneumonia. This list is not all inclusive EKG interpreted by me (3pts min.). @ -As above X-rays interpreted by me (1pt min.). @ -Chest x-ray reveals no obvious acute cardiopulmonary process. CT interpreted by me (1pt min.). @ -None done U/S interpreted by me (1pt. min.). @ -None done What testing was considered but not performed or refused? (CT, X-rays, U/S, labs)? Why? @ -None What meds were considered but not given or refused? Why? @ -None Did you discuss the management of the patient with other professionals (professionals i.e. , PA, BIODIESEL PRODUCT DEVELOPMENT MANAGER, lab, RT, psych nurse, social work program coordinator, inspecting and testing lead hand, teacher, environmental technical officer, disability case manager)? Give summary @ -No Was smoking cessation discussed for >3mins.? @ -No Was critical care preformed (if so, how long)? @ -No Were there social determinants of health that impacted care today? How? (Homelessness, low income, unemployed, alcoholism, drug addiction, transportation, low edu. Level, literacy, decrease access to med. care, penitentiary, rehab)? @ -No Was there de-escalation of care discussed even if they declined (Discuss DNR or withdrawal of care, Hospice)? DNR status @ -No What co-morbidities impacted this encounter? (DM, HTN, Smoking, COPD, CAD, Cancer, CVA, ARF, Chemo, Hep., AIDS, mental health diagnosis, sleep apnea, morbid obesity)? @ -None Was patient admitted / discharged? Hospital course, mention meds given and route, prescriptions, significant lab abnormalities, going to OR and other pertinent info. @ -Based on the patient's presentation and physical exam, I'm concerned for upper respiratory infection. The patient's current symptoms. Appears that the chest tightness is from his persistent coughing has that as well as worse. It is all around from coughing. We did discuss this and we will obtain screening EKG as well as a chest x-ray and viral swabs. Patient was in agreement this plan. Vital signs within acceptable limits. No hypoxia. No respiratory distress. Chest x-ray shows no obvious acute cardio, process. Vital signs are negative. EKG shows no acute process. On reevaluation, I updated the patient. I believe he likely is having a URI and possible bronchitis. He will be started on a Z-Iván. He also receive a single dose of steroid prior to discharge. He was in agreement this plan. Strict return precautions discussed. I will provide the patient with a prescription for azithromycin. I instructed the patient to follow up with their PCP in the next 1-3 days. . I explained that the patient should return to the emergency department if they experience any worsening symptoms. Strict return precautions were discussed with the patient. The patient expressed understanding of these instructions. I answered all questions that the patient had. The patient was discharged home in good condition with their prescriptions and follow up information. Undiagnosed new problem with uncertain prognosis? @ -No Drug Therapy requiring intensive monitoring for toxicity (Heparin, Nitro, Insulin, Cardizem)? @ -No Were any procedures done? @ -No Diagnosis/symptom? @ -URI, bronchitis Acute, or Chronic, or Acute on Chronic? @ -Acute Uncomplicated (without systemic symptoms) or Complicated (systemic symptoms)? @ -Uncomplicated Side effects of treatment? @ -none Exacerbation, Progression, or Severe Exacerbation] @ -no Poses a threat to life or bodily function? @ -no - EKG Data -: EKG Interpreted by Me EKG Comments: 12-lead Electrocardiogram Interpretation Note EKG was reviewed and interpreted by myself. 12-lead ECG performed at 2024 is interpreted by me as revealing normal sinus rhythm at a rate of 96 beats per minute. Concan is normal. CT interval is 141 ms, QRS durations 84 ms, QTc is 369 ms.. There were no ST or T wave abnormalities to suggest myocardial ischemia or injury. R wave progression across the precordium was satisfactory. By my interpretation this EKG is non-diagnostic for acute ischemia. When compared with EKG from 11/03/2022, no significant change. Patient does have chronic troponin elevation suggestive of early re-pole. Disposition Clinical Impression: Upper respiratory tract infection, Bronchitis Disposition: HOME SELF-CARE Instructions (If sedation given, give patient instructions): Upper Respiratory Infection (ED), Acute Bronchitis (ED) Prescriptions: Azithromycin [Zithromax] 250 mg PO DAILY 4 Days #4 tab Is patient prescribed a controlled substance at d/c from ED?: No Referrals: None,Stated [Primary Care Provider] - 1-2 days Time of Disposition: 21:15
--- NOTE | 2022-11-18 21:07 | XR ---
EXAMINATION TYPE: XR chest 2V DATE OF EXAM: 11/18/2022 8:50 PM COMPARISON: Chest radiographs from 11/03/2022 TECHNIQUE: XR chest 2V Frontal and lateral views of the chest. CLINICAL INDICATION:Male, 22 years old with history of cough; FINDINGS: Lungs/Pleura: There is no evidence of pleural effusion, focal consolidation, or pneumothorax. Pulmonary vascularity: Unremarkable. Heart/mediastinum: Cardiomediastinal silhouette is unremarkable. Musculoskeletal: No acute osseous pathology. IMPRESSION: No acute cardiopulmonary disease/process.
[2022-11-18] MEDS ORDERED: dexAMETHasone 2 MG TAB PO STA (21:22)
[2022-11-18] MEDS ORDERED: AZITHROMYCIN 500 MG TAB PO STA (21:22)
[2022-11-18 21:48] VITALS: RESP 18
== END 2022-11-18 21:48 | disposition home or self-care (01) ==
LOC: EC 19:55
DX: J06.9 Acute upper respiratory infection, unspecified (principal); F90.9 Attention-deficit hyperactivity disorder, unspecified type; F41.9 Anxiety disorder, unspecified; F31.9 Bipolar disorder, unspecified; F17.290 Nicotine dependence, other tobacco product, uncomplicated; F12.90 Cannabis use, unspecified, uncomplicated; Z79.899 Other long term (current) drug therapy; Z88.0 Allergy status to penicillin; Z91.013 Allergy to seafood; Z88.8 Allergy status to other drugs, medicaments and biological substances; Z20.822 Contact with and (suspected) exposure to COVID-19
CPT/HCPCS: 93005; 87636; 71046; 99285; J8540

== ENCOUNTER 2022-11-25 00:17 | Emergency (ER) | payer OTHER ==
[2022-11-25 00:27] VITALS: BP 118/63; PULSE 100; RESP 22; TEMP 98
[2022-11-25] MEDS ORDERED: MAG HYDROX/AL HYDROX/SIMETH 30 ML, HYOSCYAMINE ELIXIR 10 ML, LIDOCAINE 2% GLYDO JELLY 1... PO STA ×3 (00:48)
--- NOTE | 2022-11-25 01:50 | XR ---
EXAM: XR Cervical Spine, 2 or 3 Views CLINICAL HISTORY: ITS.REASON XR Reason: pain TECHNIQUE: Frontal and lateral views of the cervical spine. COMPARISON: No relevant prior studies available. FINDINGS: Vertebrae: No acute fracture. Normal sagittal alignment. Disc spaces: No significant narrowing. Soft tissues: Unremarkable. IMPRESSION: No acute osseous findings.
--- NOTE | 2022-11-25 02:01 | ED ---
General Adult HPI - General Chief complaint: Anxiety Stated complaint: Back Pain, Tingles in left arm and up neck Time Seen by Provider: 11/25/22 00:28 Source: patient, RN notes reviewed Mode of arrival: ambulatory Limitations: no limitations - History of Present Illness Initial comments: 22-year-old male presents emergency Department with multiple complaints. Patient states that he's been having some intermittent chest wall pain radiates up. He states that it hurts to twist been hurting any movement. He states he was in a large amount of lifting. He also states been dealing with reflux which is constant states his burning sensation worse with eating he denies any prior cardiac lung disease used to be a former smoker. Denies any associated w eakness. Does complain of left-sided neck pain that hurts to touch and worse with movement - Related Data Home Medications Medication Instructions Recorded Confirmed Melatonin 1 mg PO HS 10/12/22 10/12/22 Previous Rx's Medication Instructions Recorded levETIRAcetam [Keppra] 500 mg PO Q12HR 30 Days #60 tab 09/12/22 Dicyclomine [Bentyl] 10 mg PO QID PRN #20 capsule 10/13/22 Ondansetron Odt [Zofran Odt] 4 mg PO Q8HR PRN #15 tab 10/13/22 EPINEPHrine (Auto Inject) [Epipen] 0.3 mg IM ONCE PRN #1 each 10/18/22 Azithromycin [Zithromax] 250 mg PO DAILY 4 Days #4 tab 11/18/22 Famotidine [Pepcid] 20 mg PO BID #28 tablet 11/25/22 Allergies Allergy/AdvReac Type Severity Reaction Status Date / Time amoxicillin Allergy Anaphylaxis Verified 11/25/22 00:26 lavender (Lavandula Allergy Anaphylaxis Verified 11/25/22 00:26 angustifolia) Penicillins Allergy Anaphylaxis Verified 11/25/22 00:26 shellfish derived [Shellfish] Allergy Anaphylaxis Verified 11/25/22 00:26 Review of Systems ROS Statement: Those systems with pertinent positive or pertinent negative responses have been documented in the HPI. ROS Other: All systems not noted in ROS Statement are negative. Past Medical History Past Medical History: Seizure Disorder Additional Past Medical History / Comment(s): possibly epilepsy History of Any Multi-Drug Resistant Organisms: None Reported Past Surgical History: Appendectomy, Orthopedic Surgery Additional Past Surgical History / Comment(s): broken jaw wired Past Anesthesia/Blood Transfusion Reactions: Previous Problems w/ Anesthesia Past Psychological History: ADD/ADHD, Anxiety, Bipolar, Depression, Schizophrenia Smoking Status: Current every day smoker, Vaper Past Alcohol Use History: Rare - Past Family History Mother Family Medical History: Blood Disorder General Exam Limitations: no limitations General appearance: alert, in no apparent distress Head exam: Present: atraumatic, normocephalic, normal inspection Eye exam: Present: normal appearance, PERRL, EOMI. Absent: scleral icterus, conjunctival injection, periorbital swelling ENT exam: Present: normal exam, normal oropharynx, mucous membranes moist Neck exam: Present: normal inspection, tenderness, full ROM. Absent: meningismus, lymphadenopathy Respiratory exam: Present: normal lung sounds bilaterally, chest wall tenderness. Absent: respiratory distress, wheezes, rales, rhonchi, stridor Cardiovascular Exam: Present: regular rate, normal rhythm, normal heart sounds. Absent: systolic murmur, diastolic murmur, rubs, gallop, clicks GI/Abdominal exam: Present: soft, tenderness, normal bowel sounds. Absent: distended, guarding, rebound, rigid Extremities exam: Present: normal inspection, full ROM, normal capillary refill. Absent: tenderness, pedal edema, joint swelling, calf tenderness Neurological exam: Present: alert, oriented X3, reflexes normal. Absent: motor sensory deficit Course Vital Signs 11/25/22 00:22 Temperature 98.0 F Pulse Rate 100 Respiratory 22 Rate Blood Pressure 118/63 O2 Sat by Pulse 96 Oximetry EKG Findings - EKG Comments: EKG Findings:: EKG performed at 1:16 sinus rhythm rate of 77 TN 143 QRS 77 QT/QTC 341/372 - EKG Results: EKG: interpreted by ERMD Medical Decision Making - Medical Decision Making Was pt. sent in by a medical professional or institution (, PA, FIELD SERVICES ANALYST, urgent care, hospital, or correction...) When possible be specific @ -No Did you speak to anyone other than the patient for history (EMS, parent, family, police, friend...)? What history was obtained from this source @ -No Did you review nursing and triage notes (agree or disagree)? Why? @ -I reviewed and agree with nursing and triage notes Were old charts reviewed (outside hosp., previous admission, EMS record, old EKG, old radiological studies, urgent care reports/EKG's, correction records)? Report findings @ -No old charts were reviewed Differential Diagnosis (chest pain, altered mental status, abdominal pain women, abdominal pain men, vaginal bleeding, weakness, fever, dyspnea, syncope, headache, dizziness, GI bleed, back pain, seizure, CVA, palpatations, mental health, musculoskeletal)? @ -Differential Chest Pain: Stable Angina, Unstable Angina, STEMI, NSTEMI Aortic Dissection, Pneumothorax, Musculoskeletal, Esophageal Spasm GERD, Cholecystitis, Pancreatitis, Zoster, this is not meant to be an all-inclusive list. n EKG interpreted by me (3pts min.). @ -As above X-rays interpreted by me (1pt min.). @ -Chest x-ray shows no acute processes, cervical x-ray shows no acute processes. CT interpreted by me (1pt min.). @ -None done U/S interpreted by me (1pt. min.). @ -None done What testing was considered but not performed or refused? (CT, X-rays, U/S, labs)? Why? @ -None What meds were considered but not given or refused? Why? @ -None Did you discuss the management of the patient with other professionals (professionals i.e. , PA, FIELD SERVICES ANALYST, lab, RT, psych nurse, hospice social worker, motor installer, teacher, correction officer head, pillowcase cutter)? Give summary @ -No Was smoking cessation discussed for >3mins.? @ -No Was critical care preformed (if so, how long)? @ -No Were there social determinants of health that impacted care today? How? (Homelessness, low income, unemployed, alcoholism, drug addiction, transport ation, low edu. Level, literacy, decrease access to med. care, halfway, rehab)? @ -No Was there de-escalation of care discussed even if they declined (Discuss DNR or withdrawal of care, Hospice)? DNR status @ -No What co-morbidities impacted this encounter? (DM, HTN, Smoking, COPD, CAD, Cancer, CVA, ARF, Chemo, Hep., AIDS, mental health diagnosis, sleep apnea, morbid obesity)? @ -None Was patient admitted / discharged? Hospital course, mention meds given and route, prescriptions, significant lab abnormalities, going to OR and other pertinent info. @ -Discharge patient's been having difficulty with reflux is improved after GI cocktail. He has very reproducible chest wall pain with a normal EKG and normal chest x-ray. Patient was discharged with Pepcid return parameters were discussed. Undiagnosed new problem with uncertain prognosis? @ -No Drug Therapy requiring intensive monitoring for toxicity (Heparin, Nitro, Insulin, Cardizem)? @ -No Were any procedures done? @ -No Diagnosis/symptom? @ -GERD, chest wall pain Acute, or Chronic, or Acute on Chronic? @ -Acute Uncomplicated (without systemic symptoms) or Complicated (systemic symptoms)? @ -Uncomplicated Side effects of treatment? @ -No Exacerbation, Progression, or Severe Exacerbation? @ -No Poses a threat to life or bodily function? How? (Chest pain, [place], [place], pneumonia, PE, COPD, DKA, ARF, appy, cholecystitis, CVA, Diverticulitis, Homicidal, Suicidal, threat to staff... and all critical care pts) @ -No Disposition Clinical Impression: Chest wall pain, GERD (gastroesophageal reflux disease) Disposition: HOME SELF-CARE Condition: Stable Instructions (If sedation given, give patient instructions): GERD (Gastroesophageal Reflux Disease) in Children (ED), Diet for Stomach Ulcers and Gastritis (ED) Additional Instructions: Please return to the Emergency Department if symptoms worsen or any other concerns. Prescriptions: Famotidine [Pepcid] 20 mg PO BID #28 tablet Is patient prescribed a controlled substance at d/c from ED?: No Referrals: None,Stated [Primary Care Provider] - 1-2 days Time of Disposition: 02:16
--- NOTE | 2022-11-25 02:06 | XR ---
EXAM: XR Chest, 2 Views CLINICAL HISTORY: pain TECHNIQUE: Frontal and lateral views of the chest. COMPARISON: 11/18/2022 FINDINGS: Lungs: The lungs are stable in appearance without evidence for focal airspace consolidation. No significant radiographic abnormality involving the pulmonary vasculature. Pleural space: Unremarkable. No pneumothorax. No large pleural effusion. Heart: The cardiac silhouette is stable and unremarkable. Mediastinum: Mediastinal contours are stable, accounting for slight obliquity. No tracheal deviation. Bones/joints: Unremarkable. IMPRESSION: No acute cardiopulmonary process or significant radiographic alteration from the previous examination.
== END 2022-11-25 02:23 | disposition home or self-care (01) ==
LOC: EC 00:17
DX: R07.89 Other chest pain (principal); K21.9 Gastro-esophageal reflux disease without esophagitis; F17.290 Nicotine dependence, other tobacco product, uncomplicated; Z86.59 Personal history of other mental and behavioral disorders; Z91.013 Allergy to seafood; Z88.0 Allergy status to penicillin; Z88.8 Allergy status to other drugs, medicaments and biological substances
CPT/HCPCS: 71046; 72050; 93005; 99283

== ENCOUNTER 2022-12-08 11:20 | Emergency (ER) | payer OTHER ==
[2022-12-08 11:23] VITALS: RESP 18; TEMP 98
[2022-12-08] MEDS ORDERED: KETOROLAC 15 MG/ML 1 ML VIAL IM STA (11:55)
--- NOTE | 2022-12-08 12:20 | ED ---
Extremity Problem HPI - General Chief complaint: Extremity Problem,Nontraumatic Stated complaint: lt shoulder injury Time Seen by Provider: 12/08/22 11:40 Source: patient, RN notes reviewed, old records reviewed Mode of arrival: ambulatory Limitations: no limitations - History of Present Illness Initial comments: This is a pleasant 22-year-old male presenting with complaints of left shoulder pain with movement. States at work he is pushing and lifting heavy bins which increases his pain and discomfort. MD Complaint: joint pain (shoulder) -: days(s) (2) Location: left, upper extremity (shoulder) History of Same: No Radiation: none Severity scale (1-10): 6 Quality: constant Improves with: rest Worsens with: palpation (movement) Associated Symptoms: denies other symptoms - Related Data Home Medications Medication Instructions Recorded Confirmed Melatonin 1 mg PO HS 10/12/22 10/12/22 Previous Rx's Medication Instructions Recorded levETIRAcetam [Keppra] 500 mg PO Q12HR 30 Days #60 tab 09/12/22 Dicyclomine [Bentyl] 10 mg PO QID PRN #20 capsule 10/13/22 Ondansetron Odt [Zofran Odt] 4 mg PO Q8HR PRN #15 tab 10/13/22 EPINEPHrine (Auto Inject) [Epipen] 0.3 mg IM ONCE PRN #1 each 10/18/22 Azithromycin [Zithromax] 250 mg PO DAILY 4 Days #4 tab 11/18/22 Famotidine [Pepcid] 20 mg PO BID #28 tablet 11/25/22 Cyclobenzaprine [Flexeril] 10 mg PO TID PRN #15 tab 12/08/22 Ibuprofen [Motrin] 600 mg PO Q8HR PRN #30 tab 12/08/22 Allergies Allergy/AdvReac Type Severity Reaction Status Date / Time amoxicillin Allergy Anaphylaxis Verified 12/08/22 11:21 lavender (Lavandula Allergy Anaphylaxis Verified 12/08/22 11:21 angustifolia) Penicillins Allergy Anaphylaxis Verified 12/08/22 11:21 shellfish derived [Shellfish] Allergy Anaphylaxis Verified 12/08/22 11:21 Review of Systems ROS Statement: Those systems with pertinent positive or pertinent negative responses have been documented in the HPI. ROS Other: All systems not noted in ROS Statement are negative. Past Medical History Past Medical History: Seizure Disorder Additional Past Medical History / Comment(s): possibly epilepsy History of Any Multi-Drug Resistant Organisms: None Reported Past Surgical History: Appendectomy, Orthopedic Surgery Additional Past Surgical History / Comment(s): broken jaw wired Past Anesthesia/Blood Transfusion Reactions: Previous Problems w/ Anesthesia Past Psychological History: ADD/ADHD, Anxiety, Bipolar, Depression, Schizophrenia Smoking Status: Current every day smoker, Vaper Past Alcohol Use History: Rare - Past Family History Mother Family Medical History: Blood Disorder General Exam Limitations: no limitations General appearance: alert, in no apparent distress Head exam: Present: atraumatic Eye exam: Present: normal appearance Respiratory exam: Absent: respiratory distress, accessory muscle use Cardiovascular Exam: Present: regular rate Left Shoulder Exam: Present: full ROM, tenderness, other (pain with pressure/palpation of pectoralis major). Absent: swelling, abrasion, laceration, ecchymosis, deformity, crepitus, dislocation, erythema, tenderness over AC joint Upper Arm exam: Present: full ROM. Absent: tenderness Elbow exam: Present: full ROM. Absent: tenderness Forearm Wrist exam: Present: full ROM. Absent: tenderness Hand Wrist exam: Present: full ROM. Absent: tenderness Neurosensory exam: Present: radial nerve intact, ulnar nerve intact, median nerve intact Vascular: Present: normal capillary refill, radial pulse. Absent: vascular compromise Neurological exam: Present: alert, oriented X3, normal gait Psychiatric exam: Present: normal affect, normal mood Skin exam: Present: warm, dry, normal color. Absent: cyanosis, diaphoretic, pallor Course Vital Signs 12/08/22 12/08/22 11:21 12:32 Temperature 98 F Pulse Rate 98 90 Respiratory 18 18 Rate Blood Pressure 144/78 118/83 O2 Sat by Pulse 94 L 95 Oximetry Medical Decision Making - Medical Decision Making Was pt. sent in by a medical professional or institution (, PA, POOL NURSE, urgent care, hospital, or detention...) When possible be specific @ -No Did you speak to anyone other than the patient for history (EMS, parent, family, police, friend...)? What history was obtained from this source @ -No Did you review nursing and triage notes (agree or disagree)? Why? @ -I reviewed and agree with nursing and triage notes Were old charts reviewed (outside hosp., previous admission, EMS record, old EKG, old radiological studies, urgent care reports/EKG's, detention records)? Report findings @ -No old charts were reviewed Differential Diagnosis (chest pain, altered mental status, abdominal pain women, abdominal pain men, vaginal bleeding, weakness, fever, dyspnea, syncope, headache, dizziness, GI bleed, back pain, seizure, CVA, palpatations, mental health, musculoskeletal)? @ -Musculoskeletal pain, internal derangement left shoulder, dislocation, fracture. EKG interpreted by me (3pts min.). @ -n/a X-rays interpreted by me (1pt min.). @ -None done CT interpreted by me (1pt min.). @ -None done U/S interpreted by me (1pt. min.). @ -None done What testing was considered but not performed or refused? (CT, X-rays, U/S, labs)? Why? @ -X-ray was considered however there was no trauma patient has full range of motion and no crepitus What meds were considered but not given or refused? Why? @ -None Did you discuss the management of the patient with other professionals (professionals i.e. , PA, POOL NURSE, lab, RT, psych nurse, director social service, interior systems carpenter, teacher, protection officer, insurance case manager)? Give summary @ -No Was smoking cessation discussed for >3mins.? @ -No Was critical care preformed (if so, how long)? @ -No Were there social determinants of health that impacted care today? How? (Homelessness, low income, unemployed, alcoholism, drug addiction, transportation, low edu. Level, literacy, decrease access to med. care, nursing home, rehab)? @ -No Was there de-escalation of care discussed even if they declined (Discuss DNR or withdrawal of care, Hospice)? DNR status @ -No What co-morbidities impacted this encounter? (DM, HTN, Smoking, COPD, CAD, Cancer, CVA, ARF, Chemo, Hep., AIDS, mental health diagnosis, sleep apnea, morbid obesity)? @ -Obesity, seizure Was patient admitted / discharged? Hospital course, mention meds given and route, prescriptions, significant lab abnormalities, going to OR and other pertinent info. @ -Discharged. Patient has been pushing and pulling heavy bins at work and complaining of left shoulder pain with palpation and movement. He does have full range of motion. Negative Apley scratch test. No AC tenderness. Full range of motion. No evidence of erythema or swelling. No bruising. Patient was given a shot of Toradol for pain. Directed to rest and take Tylenol and or Motrin as needed for pain and discomfort. Follow up with his primary care doctor as needed. Patient is agreeable to this plan of care. Patient requesting time off work which was provided. Case discussed with Dr. Beatty. Undiagnosed new problem with uncertain prognosis? @ -No Drug Therapy requiring intensive monitoring for toxicity (Heparin, Nitro, Insulin, Cardizem)? @ -No Were any procedures done? @ -No Diagnosis/symptom? @ -musculoskeletal pain Acute, or Chronic, or Acute on Chronic? @ -Acute Uncomplicated (without systemic symptoms) or Complicated (systemic symptoms)? @ -Uncomplicated Side effects of treatment? @ -No Exacerbation, Progression, or Severe Exacerbation? @ -No Poses a threat to life or bodily function? How? (Chest pain, [place], [place], pneumonia, PE, COPD, DKA, ARF, appy, cholecystitis, CVA, Diverticulitis, Homicidal, Suicidal, threat to staff... and all critical care pts) @ -No Disposition Clinical Impression: Musculoskeletal strain, Shoulder pain, left Disposition: HOME SELF-CARE Condition: Good Additional Instructions: Tylenol and or Motrin as needed for any pain or discomfort. You can use the muscle relaxer Flexeril as needed. Do not operate heavy machinery, drive or drink alcohol when taking this medication. Follow-up with your primary care doctor next week for reevaluation. Return to the emergency room with any new or concerning symptoms. Prescriptions: Cyclobenzaprine [Flexeril] 10 mg PO TID PRN #15 tab PRN Reason: Muscle Spasm Ibuprofen [Motrin] 600 mg PO Q8HR PRN #30 tab PRN Reason: Pain Is patient prescribed a controlled substance at d/c from ED?: No Referrals: None,Stated [Primary Care Provider] - 1-2 days Time of Disposition: 12:03
[2022-12-08 12:33] VITALS: BP 118/83; PULSE 90
== END 2022-12-08 12:33 | disposition home or self-care (01) ==
LOC: EC 11:20
DX: S46.912A Strain of unspecified muscle, fascia and tendon at shoulder and upper arm level, left arm, initial encounter (principal); F17.290 Nicotine dependence, other tobacco product, uncomplicated; Z88.0 Allergy status to penicillin; Z91.013 Allergy to seafood; Z91.048 Other nonmedicinal substance allergy status; X50.0XXA Overexertion from strenuous movement or load, initial encounter; Y99.0 Civilian activity done for income or pay
CPT/HCPCS: 99283; 96372; J1885

== ENCOUNTER 2023-09-16 21:23 | Emergency (ER) | payer SELFPAY ==
--- NOTE | 2023-09-16 21:57 | ED ---
URI HPI - General Source: patient Mode of arrival: wheelchair Limitations: no limitations <Marline Ko - Last Filed: 09/16/23 21:56> <Yovani Hicks - Last Filed: 09/16/23 23:17> - General Chief Complaint: Upper Respiratory Infection Stated Complaint: SOB Time Seen by Provider: 09/16/23 21:56 - History of Present Illness Initial Comments: 23-year-old male presenting with chief complaint of flulike symptoms. (Marline Ko) 23-year-old male presenting to the ED with a chief complaint of URI symptoms. Patient states for the past 3 days has had myalgias, nausea, vomiting, diarrhea, cough, congestion, chills. Denies fever. No chest pain or shortness of breath. No other complaints at this time. (Yovani Hicks) - Related Data Home Medications Medication Instructions Recorded Confirmed Melatonin 1 mg PO HS 10/12/22 10/12/22 Previous Rx's Medication Instructions Recorded levETIRAcetam [Keppra] 500 mg PO Q12HR 30 Days #60 tab 09/12/22 Dicyclomine [Bentyl] 10 mg PO QID PRN #20 capsule 10/13/22 Ondansetron Odt [Zofran Odt] 4 mg PO Q8HR PRN #15 tab 10/13/22 EPINEPHrine (Auto Inject) [Epipen] 0.3 mg IM ONCE PRN #1 each 10/18/22 Azithromycin [Zithromax] 250 mg PO DAILY 4 Days #4 tab 11/18/22 Famotidine [Pepcid] 20 mg PO BID #28 tablet 11/25/22 Cyclobenzaprine [Flexeril] 10 mg PO TID PRN #15 tab 12/08/22 Ibuprofen [Motrin] 600 mg PO Q8HR PRN #30 tab 12/08/22 Ondansetron Odt [Zofran Odt] 4 mg PO Q8HR PRN #10 tab 09/16/23 Allergies Allergy/AdvReac Type Severity Reaction Status Date / Time amoxicillin Allergy Anaphylaxis Verified 09/16/23 21:49 lavender (Lavandula Allergy Anaphylaxis Verified 09/16/23 21:49 angustifolia) Penicillins Allergy Anaphylaxis Verified 09/16/23 21:49 shellfish derived [Shellfish] Allergy Anaphylaxis Verified 09/16/23 21:49 Review of Systems ROS Other: All systems not noted in ROS Statement are negative. <Marline Ko - Last Filed: 09/16/23 21:56> ROS Other: All systems not noted in ROS Statement are negative. <Yovani Hicks - Last Filed: 09/16/23 23:17> ROS Statement: Those systems with pertinent positive or pertinent negative responses have been documented in the HPI. Past Medical History Past Medical History: Seizure Disorder Additional Past Medical History / Comment(s): possibly epilepsy History of Any Multi-Drug Resistant Organisms: None Reported Past Surgical History: Appendectomy, Orthopedic Surgery Additional Past Surgical History / Comment(s): broken jaw wired Past Anesthesia/Blood Transfusion Reactions: Previous Problems w/ Anesthesia Past Psychological History: ADD/ADHD, Anxiety, Bipolar, Depression, Schizophrenia Smoking Status: Former smoker Past Alcohol Use History: None Reported Past Drug Use History: None Reported - Past Family History Mother Family Medical History: Blood Disorder <Marline Ko - Last Filed: 09/16/23 21:56> General Exam Limitations: no limitations <Marline Ko - Last Filed: 09/16/23 21:56> General appearance: alert, in no apparent distress, obese Eye exam: Present: normal appearance Neck exam: Present: normal inspection Respiratory exam: Present: normal lung sounds bilaterally Cardiovascular Exam: Present: regular rate, normal rhythm GI/Abdominal exam: Present: soft (No tenderness to palpation. No rebound guarding or rigidity.) Neurological exam: Present: alert, oriented X3 Skin exam: Present: warm, dry <Yovani Hicks - Last Filed: 09/16/23 23:17> - General Exam Comments Initial Comments: Visual Physical Exam Vital signs reviewed General: Well-appearing, nontoxic, no acute distress. Head: Normocephalic, atraumatic Eyes: PERRLA, EOMI ENT: Airway patent Chest: Nonlabored breathing Skin: No visual rash, normal skin tone Neuro: Alert and oriented 3 Musculoskeletal: No gross abnormalities (Marline Ko) Course Vital Signs 09/16/23 21:49 Temperature 99.7 F H Pulse Rate 142 H Respiratory 24 Rate Blood Pressure 92/57 O2 Sat by Pulse 96 Oximetry Medical Decision Making <Marline Ko - Last Filed: 09/16/23 21:56> <FabiolaYovani - Last Filed: 09/16/23 23:17> - Medical Decision Making I performed the quick note portion of this visit, electronically signed Marline Ko PA-C (Marline Ko) Was pt. sent in by a medical professional or institution ([facility] Trujillo, ROLL BUCKER, urgent care, hospital, or assisted...) When possible be specific @ -No Did you speak to anyone other than the patient for history (EMS, parent, family, police, friend...)? What history was obtained from this source @ -No Did you review nursing and triage notes (agree or disagree)? Why? @ -I reviewed and agree with nursing and triage notes Were old charts reviewed (outside hosp., previous admission, EMS record, old EKG, old radiological studies, urgent care reports/EKG's, assisted records)? Report findings @ -No old charts were reviewed Differential Diagnosis (chest pain, altered mental status, abdominal pain women, abdominal pain men, vaginal bleeding, weakness, fever, dyspnea, syncope, headache, dizziness, GI bleed, back pain, seizure, CVA, palpatations, mental health, musculoskeletal)? @ -Differential Fever: Pneumonia, viral URI, endocarditis, myocarditis, pericarditis, otitis, sinusitis, peritonsillar Abscess, retropharyngeal Abscess, epiglottitis, peritonitis, appendicitis, Karen cystitis, diverticulitis, hepatitis, colitis, UTI, PID, TOA, pyelonephritis, prostatitis, epididymitis, meningitis, encephalitis, pulmonary embolism, CVA, thyroid storm, pancreatitis, adrenal crisis, cavernous sinus thrombosis, this is not meant to be an all-inclusive list. EKG interpreted by me (3pts min.). @ -None X-rays interpreted by me (1pt min.). @ -Chest x-ray interpreted by me showing no evidence of acute findings. CT interpreted by me (1pt min.). @ -None done U/S interpreted by me (1pt. min.). @ -None done What testing was considered but not performed or refused? (CT, X-rays, U/S, labs)? Why? @ -None What meds were considered but not given or refused? Why? @ -None Did you discuss the management of the patient with other professionals (professionals i.e. , PA, ROLL BUCKER, lab, RT, psych nurse, social media community manager, real estate rep, teacher, natural resource officer, case coordinator)? Give summary @ -No Was smoking cessation discussed for >3mins.? @ -No Was critical care preformed (if so, how long)? @ -No Were there social determinants of health that impacted care today? How? (Homelessness, low income, unemployed, alcoholism, drug addiction, transportation, low edu. Level, literacy, decrease access to med. care, retirement, rehab)? @ -No Was there de-escalation of care discussed even if they declined (Discuss DNR or withdrawal of care, Hospice)? DNR status @ -No What co-morbidities impacted this encounter? (DM, HTN, Smoking, COPD, CAD, Cancer, CVA, ARF, Chemo, Hep., AIDS, mental health diagnosis, sleep apnea, morbid obesity)? @ -None Was patient admitted / discharged? Hospital course, mention meds given and route, prescriptions, significant lab abnormalities, going to OR and other pertinent info. @ -Discharged 23-year-old male presenting to the ED with flulike symptoms for the past 3 days. Chest x-ray no acute findings. Serology panel did show patient positive for influenza A. Patient provided fluids, Toradol, Zofran with improvement of symptoms. Discharged home in stable condition. Discussed return precautions with patient verbalizes agreement. Undiagnosed new problem with uncertain prognosis? @ -No Drug Therapy requiring intensive monitoring for toxicity (Heparin, Nitro, Insulin, Cardizem)? @ -No Were any procedures done? @ -No Diagnosis/symptom? @ -Influenza A Acute, or Chronic, or Acute on Chronic? @ -Acute Uncomplicated (without systemic symptoms) or Complicated (systemic symptoms)? @ -Uncomplicated Side effects of treatment? @ -No Exacerbation, Progression, or Severe Exacerbation? @ -No Poses a threat to life or bodily function? How? (Chest pain, [place], [place], pneumonia, PE, COPD, DKA, ARF, appy, cholecystitis, CVA, Diverticulitis, Homicidal, Suicidal, threat to staff... and all critical care pts) @ -No (Yovani Hicks) - Lab Data Lab Results 09/16/23 Range/Units 22:00 Influenza Type A (PCR) Detected A (Not Detectd) Influenza Type B (PCR) Not Detected (Not Detectd) RSV (PCR) Not Detected (Not Detectd) SARS-CoV-2 (PCR) Not Detected (Not Detectd) Disposition <Marline Ko - Last Filed: 09/16/23 21:56> Is patient prescribed a controlled substance at d/c from ED?: No Time of Disposition: 23:16 <Yovani Hicks - Last Filed: 09/16/23 23:17> Clinical Impression: Influenza Disposition: HOME SELF-CARE Condition: Good Additional Instructions: Please return to the Emergency Department if symptoms worsen or any other concerns. Please follow up with your PCP. Prescriptions: Ondansetron Odt [Zofran Odt] 4 mg PO Q8HR PRN #10 tab PRN Reason: Nausea Referrals: None,Stated [Primary Care Provider] - 1-2 days
--- NOTE | 2023-09-16 22:54 | XR ---
EXAM: XR Chest, 2 Views CLINICAL HISTORY: ITS.REASON XR Reason: SOB TECHNIQUE: Frontal and lateral views of the chest. COMPARISON: X-ray 04/07/2023 FINDINGS: Lungs: No consolidation. No overt edema. Pleural space: No pleural effusion. No pneumothorax. Heart: Unremarkable. No cardiomegaly. Bones/joints: Unremarkable. No fracture or malalignment. IMPRESSION: No acute cardiopulmonary abnormality.
[2023-09-16] MEDS: SODIUM CHLORIDE 0.9% 1,000 ML IV STA (23:21)
[2023-09-16] MEDS: ONDANSETRON 4 MG ODT STARTER PACK 2 TAB BTL PO STA (23:22)
[2023-09-16] MEDS: ONDANSETRON 4 MG/2 ML VIAL IVP STA (23:22)
[2023-09-16] MEDS: KETOROLAC 15 MG/ML 1 ML VIAL IVP STA (23:22)
[2023-09-17 01:14] VITALS: BP 93/55; PULSE 100; RESP 16; TEMP 99.8
== END 2023-09-17 01:18 | disposition home or self-care (01) ==
LOC: EC 21:23
DX: J10.1 Influenza due to other identified influenza virus with other respiratory manifestations (principal); Z86.59 Personal history of other mental and behavioral disorders; Z87.891 Personal history of nicotine dependence; Z88.0 Allergy status to penicillin; Z91.013 Allergy to seafood; Z88.8 Allergy status to other drugs, medicaments and biological substances; Z20.822 Contact with and (suspected) exposure to COVID-19
CPT/HCPCS: 93005; 87636; 71046; 99285; 96374; 96375; 96361 ×2; J2405; J1885; S0119

== ENCOUNTER 2023-11-07 17:21 | Emergency (ER) | payer OTHER ==
[2023-11-07] MEDS: KETOROLAC 15 MG/ML 1 ML VIAL IM STA (18:11)
[2023-11-07 18:18] VITALS: RESP 18; TEMP 98.1
--- NOTE | 2023-11-07 18:22 | ED ---
General Adult HPI - General Chief complaint: Extremity Injury, Upper Stated complaint: Left hand injury Time Seen by Provider: 11/07/23 17:35 Source: patient, RN notes reviewed, old records reviewed Mode of arrival: ambulatory - History of Present Illness Initial comments: 23-year-old male with left wrist pain and right hand pain after aggressively punching a punching bag. Patient complains predominantly of pain over the fifth metacarpal on the right hand and the base of the wrist on the left hand. No other injury reported. This occurred just prior to arrival. - Related Data Home Medications Medication Instructions Recorded Confirmed Melatonin 1 mg PO HS 10/12/22 10/12/22 Previous Rx's Medication Instructions Recorded levETIRAcetam [Keppra] 500 mg PO Q12HR 30 Days #60 tab 09/12/22 Dicyclomine [Bentyl] 10 mg PO QID PRN #20 capsule 10/13/22 Ondansetron Odt [Zofran Odt] 4 mg PO Q8HR PRN #15 tab 10/13/22 EPINEPHrine (Auto Inject) [Epipen] 0.3 mg IM ONCE PRN #1 each 10/18/22 Azithromycin [Zithromax] 250 mg PO DAILY 4 Days #4 tab 11/18/22 Famotidine [Pepcid] 20 mg PO BID #28 tablet 11/25/22 Cyclobenzaprine [Flexeril] 10 mg PO TID PRN #15 tab 12/08/22 Ibuprofen [Motrin] 600 mg PO Q8HR PRN #30 tab 12/08/22 Ondansetron Odt [Zofran Odt] 4 mg PO Q8HR PRN #10 tab 09/16/23 Allergies Allergy/AdvReac Type Severity Reaction Status Date / Time amoxicillin Allergy Anaphylaxis Verified 11/07/23 17:42 lavender (Lavandula Allergy Anaphylaxis Verified 11/07/23 17:42 angustifolia) Penicillins Allergy Anaphylaxis Verified 11/07/23 17:42 shellfish derived [Shellfish] Allergy Anaphylaxis Verified 11/07/23 17:42 Review of Systems ROS Statement: Those systems with pertinent positive or pertinent negative responses have been documented in the HPI. ROS Other: All systems not noted in ROS Statement are negative. Past Medical History Past Medical History: Seizure Disorder Additional Past Medical History / Comment(s): possibly epilepsy History of Any Multi-Drug Resistant Organisms: None Reported Past Surgical History: Appendectomy, Orthopedic Surgery Additional Past Surgical History / Comment(s): broken jaw wired Past Anesthesia/Blood Transfusion Reactions: Previous Problems w/ Anesthesia Past Psychological History: ADD/ADHD, Anxiety, Bipolar, Depression, Schizophrenia Smoking Status: Former smoker, Vaper Past Alcohol Use History: None Reported Past Drug Use History: None Reported - Past Family History Mother Family Medical History: Blood Disorder General Exam General appearance: alert, in no apparent distress Head exam: Present: atraumatic, normocephalic Eye exam: Present: normal appearance, PERRL ENT exam: Present: normal exam Neck exam: Present: normal inspection. Absent: tenderness, meningismus Respiratory exam: Present: normal lung sounds bilaterally. Absent: respiratory distress, wheezes Cardiovascular Exam: Present: regular rate, normal rhythm GI/Abdominal exam: Present: soft. Absent: distended, tenderness Extremities exam: Present: other (Pain with range of motion of the left wrist, pain at the fifth metacarpal right hand. ) Neurological exam: Present: alert, oriented X3, CN II-XII intact. Absent: motor sensory deficit Psychiatric exam: Present: normal affect, normal mood Course Vital Signs 11/07/23 11/07/23 17:35 20:12 Temperature 98.1 F Pulse Rate 92 85 Respiratory 18 18 Rate Blood Pressure 130/77 117/77 O2 Sat by Pulse 95 100 Oximetry Procedures - Orthopedic Splinting/Casting Injury #1 Side: left Upper Extremity Injury Location: wrist Upper Extremity Immobilizer: volar splint Medical Decision Making - Medical Decision Making Was pt. sent in by a medical professional or institution ( PA, PROVISIONING ANALYST, urgent care, hospital, or half-way...) When possible be specific @ -No Did you speak to anyone other than the patient for history (EMS, parent, family, police, friend...)? What history was obtained from this source @ -No Did you review nursing and triage notes (agree or disagree)? Why? @ -I reviewed and agree with nursing and triage notes Were old charts reviewed (outside hosp., previous admission, EMS record, old EKG, old radiological studies, urgent care reports/EKG's, half-way records)? Report findings @ -No old charts were reviewed Differential Musculoskeletal Muscular strain, contusion, ligament sprain, fracture, arthritis, septic arthritis, bursitis, cellulitis, muscle spasm, nerve compression, DVT, arterial occlusion, herpes zoster, electrolyte abnormality, tumor.... This is not meant to be in all inclusive list EKG interpreted by me (3pts min.). @ -As above X-rays interpreted by me (1pt min.). @X-ray of the right hand and left wrist negative for displaced fracture, no dislocation. CT interpreted by me (1pt min.). @ -None done U/S interpreted by me (1pt. min.). @ -None done What testing was considered but not performed or refused? (CT, X-rays, U/S, labs)? Why? @ -None What meds were considered but not given or refused? Why? @ -None Did you discuss the management of the patient with other professionals (professionals i.e. , PA, PROVISIONING ANALYST, lab, RT, psych nurse, licensed social worker, black belt, teacher, loss prevention officer, case management associate)? Give summary @ -No Was smoking cessation discussed for >3mins.? @ -No Was critical care preformed (if so, how long)? @ -No Were there social determinants of health that impacted care today? How? (Homelessness, low income, unemployed, alcoholism, drug addiction, transportation, low edu. Level, literacy, decrease access to med. care, half-way, rehab)? @ -No Was there de-escalation of care discussed even if they declined (Discuss DNR or withdrawal of care, Hospice)? DNR status @ -No What co-morbidities impacted this encounter? (DM, HTN, Smoking, COPD, CAD, Cancer, CVA, ARF, Chemo, Hep., AIDS, mental health diagnosis, sleep apnea, morbid obesity)? @ -None Was patient admitted / discharged? Hospital course, mention meds given and route, prescriptions, significant lab abnormalities, going to OR and other pertinent info. @ -23-year-old male with left wrist pain and right hand pain after punching a punching bag. X-rays of the areas of concern are negative for displaced fracture or dislocation. Patient is placed in a volar splint due to left wrist pain. He will elevate, ice the extremity, take Tylenol Motrin for pain. Undiagnosed new problem with uncertain prognosis? @ -No Drug Therapy requiring intensive monitoring for toxicity (Heparin, Nitro, Insulin, Cardizem)? @ -No Were any procedures done? @ -Yes, splinting of the left wrist Diagnosis/symptom? @ -Wrist sprain, hand contusion Acute, or Chronic, or Acute on Chronic? @ -Acute Uncomplicated (without systemic symptoms) or Complicated (systemic symptoms)? @ -Default Side effects of treatment? @ -No Exacerbation, Progression, or Severe Exacerbation? @ -No Poses a threat to life or bodily function? How? (Chest pain, [place], [place], pneumonia, PE, COPD, DKA, ARF, appy, cholecystitis, CVA, Diverticulitis, Homicidal, Suicidal, threat to staff... and all critical care pts) @ -No Disposition Clinical Impression: Wrist sprain, Hand contusion Disposition: HOME SELF-CARE Condition: Good Instructions (If sedation given, give patient instructions): Wrist Injury (ED) Is patient prescribed a controlled substance at d/c from ED?: No Referrals: None,Stated [Primary Care Provider] - 1-2 days Time of Disposition: 20:02
[2023-11-07 20:47] VITALS: BP 117/77; PULSE 85
--- NOTE | 2023-11-07 23:46 | XR ---
EXAM: XR hand complete RT CLINICAL INDICATION:Male, 23 years old with history of pain; [facility] COMPARISON: None. TECHNIQUE: 3 views right hand, 4 views right wrist. FINDINGS: IMPRESSION: No evidence of acute osseous pathology. Unremarkable soft tissues without radiopaque foreign body see n.
--- NOTE | 2023-11-07 23:47 | XR ---
EXAMINATION TYPE: XR wrist complete LT DATE OF EXAM: 11/07/2023 6:28 PM CLINICAL INDICATION:Male, 23 years old with history of pain; [facility] COMPARISON: None. TECHNIQUE: 3 views right hand, 4 views right wrist. FINDINGS: IMPRESSION: No evidence of acute osseous pathology. Unremarkable soft tissues without radiopaque foreign body see n.
== END 2023-11-07 20:12 | disposition home or self-care (01) ==
LOC: EC 17:21
DX: S63.502A Unspecified sprain of left wrist, initial encounter (principal); F17.290 Nicotine dependence, other tobacco product, uncomplicated; Z88.0 Allergy status to penicillin; Z91.013 Allergy to seafood; Z88.8 Allergy status to other drugs, medicaments and biological substances; W21.89XA Striking against or struck by other sports equipment, initial encounter
CPT/HCPCS: 73110; 73130; 99283; 96372; 29125; J1885

== ENCOUNTER 2024-01-15 23:57 | Emergency (ER) | payer OTHER ==
[2024-01-16 00:02] VITALS: BP 110/74; PULSE 93; RESP 18; TEMP 98.3
[2024-01-16] MEDS: diphenhydrAMINE 50 MG/ML 1 ML VIAL IM STA (01:01)
[2024-01-16] MEDS: FAMOTIDINE 20 MG TAB PO STA (01:02)
[2024-01-16] MEDS: methylPREDNISolone SOD SUCCI 125 MG/2 ML VIAL IM ONE (01:02)
--- NOTE | 2024-01-16 02:30 | ED ---
Allergic Reaction HPI - General Chief complaint: Allergic Reaction Stated complaint: Allergic reaction Time Seen by Provider: 01/16/24 00:16 Source: patient Mode of arrival: ambulatory - History of Present Illness Initial Comments: 23-year-old male presenting with chief complaint of allergic reaction. He states that several hours ago around lunchtime he took a sip of a water bottle that someone else had drink out of while eating shellfish. He reports that he has had a "scratchy throat". And feels some itching and swelling to his cheeks. No difficulty breathing or swallowing. No abdominal pain, nausea, vomiting, diarrhea. No fever. - Related Data Home Medications Medication Instructions Recorded Confirmed Melatonin 1 mg PO HS 10/12/22 10/12/22 Previous Rx's Medication Instructions Recorded levETIRAcetam [Keppra] 500 mg PO Q12HR 30 Days #60 tab 09/12/22 Dicyclomine [Bentyl] 10 mg PO QID PRN #20 capsule 10/13/22 Ondansetron Odt [Zofran Odt] 4 mg PO Q8HR PRN #15 tab 10/13/22 EPINEPHrine (Auto Inject) [Epipen] 0.3 mg IM ONCE PRN #1 each 10/18/22 Azithromycin [Zithromax] 250 mg PO DAILY 4 Days #4 tab 11/18/22 Famotidine [Pepcid] 20 mg PO BID #28 tablet 11/25/22 Cyclobenzaprine [Flexeril] 10 mg PO TID PRN #15 tab 12/08/22 Ibuprofen [Motrin] 600 mg PO Q8HR PRN #30 tab 12/08/22 Ondansetron Odt [Zofran Odt] 4 mg PO Q8HR PRN #10 tab 09/16/23 Allergies Allergy/AdvReac Type Severity Reaction Status Date / Time amoxicillin Allergy Anaphylaxis Verified 01/16/24 00:02 lavender (Lavandula Allergy Anaphylaxis Verified 01/16/24 00:02 angustifolia) Penicillins Allergy Anaphylaxis Verified 01/16/24 00:02 shellfish derived [Shellfish] Allergy Anaphylaxis Verified 01/16/24 00:02 Review of Systems ROS Statement: Those systems with pertinent positive or pertinent negative responses have been documented in the HPI. ROS Other: All systems not noted in ROS Statement are negative. Past Medical History Past Medical History: Seizure Disorder Additional Past Medical History / Comment(s): possibly epilepsy History of Any Multi-Drug Resistant Organisms: None Reported Past Surgical History: Appendectomy, Orthopedic Surgery Additional Past Surgical History / Comment(s): broken jaw wired Past Anesthesia/Blood Transfusion Reactions: Previous Problems w/ Anesthesia Past Psychological History: ADD/ADHD, Anxiety, Bipolar, Depression, Schizophrenia Smoking Status: Former smoker, Vaper Past Alcohol Use History: None Reported Past Drug Use History: Marijuana - Past Family History Mother Family Medical History: Blood Disorder General Exam Limitations: no limitations General appearance: alert, in no apparent distress Head exam: Present: atraumatic, normocephalic Eye exam: Present: normal appearance, EOMI ENT exam: Present: normal exam, normal oropharynx, mucous membranes moist Neck exam: Present: normal inspection. Absent: meningismus Respiratory exam: Present: normal lung sounds bilaterally. Absent: respiratory distress, wheezes, rales, rhonchi, stridor Cardiovascular Exam: Present: regular rate, normal rhythm, normal heart sounds. Absent: systolic murmur, diastolic murmur, rubs, gallop, clicks Neurological exam: Present: alert, oriented X3 Psychiatric exam: Present: normal affect, normal mood Skin exam: Absent: urticaria Course Vital Signs 01/15/24 23:59 Temperature 98.3 F Pulse Rate 93 Respiratory 18 Rate Blood Pressure 110/74 O2 Sat by Pulse 97 Oximetry Medical Decision Making - Medical Decision Making Was pt. sent in by a medical professional or institution (JACOBO Trujillo, MONKEY KEEPER, urgent care, hospital, or long-term...) When possible be specific @ -No Did you speak to anyone other than the patient for history (EMS, parent, family, police, friend...)? What history was obtained from this source @ -No Did you review nursing and triage notes (agree or disagree)? Why? @ -I reviewed and agree with nursing and triage notes Were old charts reviewed (outside hosp., previous admission, EMS record, old EKG, old radiological studies, urgent care reports/EKG's, long-term records)? Report findings @ -No old charts were reviewed Differential Diagnosis (chest pain, altered mental status, abdominal pain women, abdominal pain men, vaginal bleeding, weakness, fever, dyspnea, syncope, headache, dizziness, GI bleed, back pain, seizure, CVA, palpatations, mental health, musculoskeletal)? @ -Differential includes allergic reaction, anaphylaxis, epiglottitis, foreign body, peritonsillar abscess, strep pharyngitis, this is not an all-inclusive list EKG interpreted by me (3pts min.). @ -As above X-rays interpreted by me (1pt min.). @ -None done CT interpreted by me (1pt min.). @ -None done U/S interpreted by me (1pt. min.). @ -None done What testing was considered but not performed or refused? (CT, X-rays, U/S, labs)? Why? @ -None What meds were considered but not given or refused? Why? @ -None Did you discuss the management of the patient with other professionals (professionals i.e. , PA, MONKEY KEEPER, lab, RT, psych nurse, social media community manager, sap gatherer, teacher, chief knowledge officer, top case assembler)? Give summary @ -No Was smoking cessation discussed for >3mins.? @ -No Was critical care preformed (if so, how long)? @ -No Were there social determinants of health that impacted care today? How? (Home lessness, low income, unemployed, alcoholism, drug addiction, transportation, low edu. Level, literacy, decrease access to med. care, prison, rehab)? @ -No Was there de-escalation of care discussed even if they declined (Discuss DNR or withdrawal of care, Hospice)? DNR status @ -No What co-morbidities impacted this encounter? (DM, HTN, Smoking, COPD, CAD, Cancer, CVA, ARF, Chemo, Hep., AIDS, mental health diagnosis, sleep apnea, morbid obesity)? @ -None Was patient admitted / discharged? Hospital course, mention meds given and route, prescriptions, significant lab abnormalities, going to OR and other pertinent info. @ -23-year-old male presenting with chief complaint of throat irritation and rash and itching to the face. He had a shellfish exposure several hours ago around lunchtime. He is having no difficulty breathing or swallowing. No signs of angioedema. He is given Benadryl, Solu-Medrol, and Pepcid. On reassessment he reports improvement. Discharged home. Follow-up with PCP. Report back to ER with any new or worsening symptoms. Discussed return parameters and answered all questions. Patient conveyed verbal understanding and agreed to the plan. I discussed this case in detail with my attending Dr. Ely Undiagnosed new problem with uncertain prognosis? @ -No Drug Therapy requiring intensive monitoring for toxicity (Heparin, Nitro, Insulin, Cardizem)? @ -No Were any procedures done? @ -No Diagnosis/symptom? @ -Allergic reaction Acute, or Chronic, or Acute on Chronic? @ -Acute Uncomplicated (without systemic symptoms) or Complicated (systemic symptoms)? @ -Uncomplicated Side effects of treatment? @ -No Exacerbation, Progression, or Severe Exacerbation? @ -No Poses a threat to life or bodily function? How? (Chest pain, [place], [place], pneumonia, PE, COPD, DKA, ARF, appy, cholecystitis, CVA, Diverticulitis, Homicidal, Suicidal, threat to staff... and all critical care pts) @ -Low likelihood Disposition Clinical Impression: Allergic reaction Disposition: HOME SELF-CARE Condition: Good Instructions (If sedation given, give patient instructions): General Allergic Reaction (ED) Additional Instructions: Follow-up with your PCP. Report back to ER with any new or worsening symptoms. Take Benadryl as needed. Is patient prescribed a controlled substance at d/c from ED?: No Referrals: None,Stated [Primary Care Provider] - 1-2 days Reggie Fuller MD [STAFF PHYSICIAN] - 1-2 days Time of Disposition: 02:30
== END 2024-01-16 02:39 | disposition home or self-care (01) ==
LOC: EC 23:57
DX: T78.1XXA Other adverse food reactions, not elsewhere classified, initial encounter (principal); F17.290 Nicotine dependence, other tobacco product, uncomplicated; Z88.0 Allergy status to penicillin; Z91.013 Allergy to seafood; Z88.8 Allergy status to other drugs, medicaments and biological substances
CPT/HCPCS: 99283; 96372 ×2; J1200; J2919

== ENCOUNTER 2024-02-14 15:54 | Emergency (ER) | payer OTHER ==
[2024-02-14 16:03] VITALS: TEMP 97.6
[2024-02-14 16:30] LABS: Basophils # (A) 0.1 k/uL (0-0.2); Basophils % (A) 1 %; Eosinophils # (A) 0.4 k/uL (0-0.7); Eosinophils % (A) 4 %; HCT 47.1 % (39.0-53.0); HGB 16.3 gm/dL (13.0-17.5); Lymphocytes # (A) 1.9 k/uL (1.0-4.8); Lymphocytes % (A) 18 %; MCH 30.5 pg (25.0-35.0); MCHC 34.7 g/dL (31.0-37.0); MCV 87.9 fL (80.0-100.0); Mean Platelet Volume 6.7; Monocytes # (A) 0.4 k/uL (0-1.0); Monocytes % (A) 4 %; Neutrophils # (A) 7.5 k/uL (1.3-7.7); Neutrophils % (A) 72 %; Platelet Count 322 k/uL (150-450); RBC 5.36 m/uL (4.30-5.90); RDW 12.7 % (11.5-15.5); WBC 10.4 k/uL (3.8-10.6)
--- NOTE | 2024-02-14 16:31 | XR ---
EXAMINATION TYPE: XR chest 2V DATE OF EXAM: 02/14/2024 4:28 PM CLINICAL INDICATION:Male, 23 years old with history of shortness of breath; H COMPARISON: Chest radiographs from 09/16/2023 TECHNIQUE: XR chest 2V Frontal view of the chest. FINDINGS: Lungs/Pleura: There is no evidence of pleural effusion, focal consolidation, or pneumothorax. Pulmonary vascularity: Unremarkable. Heart/mediastinum: Cardiomediastinal silhouette is unremarkable. Musculoskeletal: No acute osseous pathology. IMPRESSION: No acute cardiopulmonary disease/process.
[2024-02-14 16:56] LABS: ALT 60 U/L (4-49); AST 32 U/L (17-59); African American GFR (CKD) >90 (>60 ml/min/1.73 sqM); Albumin 4.5 g/dL (3.5-5.0); Alkaline Phosphatase 60 U/L (38-126); Anion Gap 13 mmol/L; Blood Urea Nitrogen 18 mg/dL (9-20); Calcium 9.6 mg/dL (8.4-10.2); Carbon Dioxide 19 mmol/L (22-30); Chloride 108 mmol/L (98-107); Glucose 108 mg/dL (74-99); Non-African American GFR(CKD) >90 (>60 ml/min/1.73 sqM); Potassium 4.1 mmol/L (3.5-5.1); Sodium 140 mmol/L (137-145); Total Protein 6.7 g/dL (6.3-8.2)
--- NOTE | 2024-02-14 18:28 | ED ---
Nausea/Vomiting/Diarrhea HPI - General Chief complaint: Nausea/Vomiting/Diarrhea Stated complaint: SOB Time Seen by Provider: 02/14/24 16:10 Source: patient, RN notes reviewed Mode of arrival: ambulatory Limitations: no limitations - History of Present Illness Initial comments: 23-year-old male with no significant past medical history who presents emergency department chief complaint of bilateral pulmonary symptoms. Patient states that since yesterday he has been experiencing a cough associated with chest pain that is exacerbated by cough, fevers and chills, nausea and vomiting and diffuse abdominal pain. Patient denies hematochezia, hematemesis, dark or tarry stools. Patient denies personal history of DVT, history of clotting disorders. Denies recent prolonged travel, swelling to the lower extremities, shortness of breath. Chest pain is related to cough and inspiration. - Related Data Home Medications Medication Instructions Recorded Confirmed Melatonin 1 mg PO HS 10/12/22 10/12/22 Previous Rx's Medication Instructions Recorded levETIRAcetam [Keppra] 500 mg PO Q12HR 30 Days #60 tab 09/12/22 Dicyclomine [Bentyl] 10 mg PO QID PRN #20 capsule 10/13/22 Ondansetron Odt [Zofran Odt] 4 mg PO Q8HR PRN #15 tab 10/13/22 EPINEPHrine (Auto Inject) [Epipen] 0.3 mg IM ONCE PRN #1 each 10/18/22 Azithromycin [Zithromax] 250 mg PO DAILY 4 Days #4 tab 11/18/22 Famotidine [Pepcid] 20 mg PO BID #28 tablet 11/25/22 Cyclobenzaprine [Flexeril] 10 mg PO TID PRN #15 tab 12/08/22 Ibuprofen [Motrin] 600 mg PO Q8HR PRN #30 tab 12/08/22 Ondansetron Odt [Zofran Odt] 4 mg PO Q8HR PRN #10 tab 09/16/23 Albuterol Inhaler [Ventolin Hfa 1 - 2 puff INHALATION Q6H PRN #1 02/14/24 Inhaler] each Allergies Allergy/AdvReac Type Severity Reaction Status Date / Time amoxicillin Allergy Anaphylaxis Verified 02/14/24 16:03 lavender (Lavandula Allergy Anaphylaxis Verified 02/14/24 16:03 angustifolia) Penicillins Allergy Anaphylaxis Verified 02/14/24 16:03 shellfish derived [Shellfish] Allergy Anaphylaxis Verified 02/14/24 16:03 Review of Systems ROS Statement: Those systems with pertinent positive or pertinent negative responses have been documented in the HPI. ROS Other: All systems not noted in ROS Statement are negative. Past Medical History Past Medical History: Seizure Disorder Additional Past Medical History / Comment(s): possibly epilepsy History of Any Multi-Drug Resistant Organisms: None Reported Past Surgical History: Appendectomy, Orthopedic Surgery Additional Past Surgical History / Comment(s): broken jaw wired Past Anesthesia/Blood Transfusion Reactions: Previous Problems w/ Anesthesia Past Psychological History: ADD/ADHD, Anxiety, Bipolar, Depression, Schizophrenia Smoking Status: Former smoker, Vaper Past Alcohol Use History: None Reported Past Drug Use History: Marijuana - Past Family History Mother Family Medical History: Blood Disorder General Exam Limitations: no limitations General appearance: alert, in no apparent distress Head exam: Present: atraumatic, normocephalic, normal inspection Eye exam: Present: normal appearance, PERRL, EOMI. Absent: scleral icterus, conjunctival injection, periorbital swelling ENT exam: Present: normal exam, mucous membranes moist Neck exam: Present: normal inspection. Absent: tenderness, meningismus, lymphadenopathy Respiratory exam: Present: normal lung sounds bilaterally. Absent: respiratory distress, wheezes, rales, rhonchi, stridor Cardiovascular Exam: Present: regular rate, normal rhythm, normal heart sounds. Absent: systolic murmur, diastolic murmur, rubs, gallop, clicks GI/Abdominal exam: Present: soft, normal bowel sounds. Absent: distended, tenderness, guarding, rebound, rigid Extremities exam: Present: normal inspection, full ROM, normal capillary refill. Absent: tenderness, pedal edema, joint swelling, calf tenderness Back exam: Present: normal inspection Neurological exam: Present: alert, oriented X3, CN II-XII intact Psychiatric exam: Present: normal affect, normal mood Skin exam: Present: warm, dry, intact, normal color. Absent: rash Course Vital Signs 02/14/24 02/14/24 02/14/24 15:59 21:32 21:43 Temperature 97.6 F Pulse Rate 113 H 81 78 Respiratory 20 Rate Blood Pressure 121/74 O2 Sat by Pulse 95 Oximetry 02/14/24 21:48 Temperature Pulse Rate 82 Respiratory 16 Rate Blood Pressure 127/74 O2 Sat by Pulse 96 Oximetry Medical Decision Making - Medical Decision Making Was pt. sent in by a medical professional or institution (, [facility], ADVERTISING SALES EXECUTIVE, urgent care, hospital, or group home...) When possible be specific @ -No Did you speak to anyone other than the patient for history (EMS, parent, family, police, friend...)? What history was obtained from this source @ -No Did you review nursing and triage notes (agree or disagree)? Why? @ -I reviewed and agree with nursing and triage notes Were old charts reviewed (outside hosp., previous admission, EMS record, old EKG, old radiological studies, urgent care reports/EKG's, group home records)? Report findings @ -No old charts were reviewed Differential Diagnosis (chest pain, altered mental status, abdominal pain women, abdominal pain men, vaginal bleeding, weakness, fever, dyspnea, syncope, headache, dizziness, GI bleed, back pain, seizure, CVA, palpatations, mental health, musculoskeletal)? @ -COVID 19, RSV, influenza, pneumonia, acute bronchitis, URI, this list is not all inclusive EKG interpreted by me (3pts min.). @ -completed at 1709, sinus rhythm, ventricular rate 83, VA interval 135, QTc 364. No acute signs of ischemia. X-rays interpreted by me (1pt min.). @ -Chest x-ray no acute cardiopulmonary process or disease. CT interpreted by me (1pt min.). @ -None done U/S interpreted by me (1pt. min.). @ -None done What testing was considered but not performed or refused? (CT, X-rays, U/S, labs)? Why? @ -None What meds were considered but not given or refused? Why? @ -None Did you discuss the management of the patient with other professionals (professionals i.e. , [facility], ADVERTISING SALES EXECUTIVE, lab, RT, psych nurse, social services technician, glass driller, t eacher, foreign policy officer, heel caser)? Give summary @ -No Was smoking cessation discussed for >3mins.? @ -No Was critical care preformed (if so, how long)? @ -No Were there social determinants of health that impacted care today? How? (Homelessness, low income, unemployed, alcoholism, drug addiction, transportation, low edu. Level, literacy, decrease access to med. care, [facility], rehab)? @ -No Was there de-escalation of care discussed even if they declined (Discuss DNR or withdrawal of care, Hospice)? DNR status @ -No What co-morbidities impacted this encounter? (DM, HTN, Smoking, COPD, CAD, Cance r, CVA, ARF, Chemo, Hep., AIDS, mental health diagnosis, sleep apnea, morbid obesity)? @ -None Was patient admitted / discharged? Hospital course, mention meds given and route, prescriptions, significant lab abnormalities, going to OR and other pertinent info. @ -discharge. 23-year-old male with cough, congestion. On examination patient is resting comfortably in the room with no acute signs of distress. Vitals are within normal limits. Physical examination no acute findings. CT and CMP unre markable. Patient's hypertrophic, flu, RSV. Patient states that he does have a history of asthma and is requesting a breathing treatment while he was in the emergency department. On reevaluation, he states that his pressure in his chest has markedly improved after albuterol breathing treatment. He is prescribed a inhaler recommend to follow-up with his primary care provider this week for further evaluation. Patient symptoms likely secondary to a viral infection at this time and he is feeling stable for discharge. All questions answered at bedside and strict return parameters richie with the patient he is verbalized understanding. Discussed with Dr. Rondon Undiagnosed new problem with uncertain prognosis? @ -No Drug Therapy requiring intensive monitoring for toxicity (Heparin, Nitro, Insulin, Cardizem)? @ -No Were any procedures done? @ -No Diagnosis/symptom? @ -viral URI Acute, or Chronic, or Acute on Chronic? @ -acute Uncomplicated (without systemic symptoms) or Complicated (systemic symptoms)? @ -uncomplicated Side effects of treatment? @ -No Exacerbation, Progression, or Severe Exacerbation? @ -No Poses a threat to life or bodily function? How? (Chest pain, [place], CA, pneumonia, PE, COPD, DKA, ARF, appy, cholecystitis, CVA, Diverticulitis, Homicidal, Suicidal, threat to staff... and all critical care pts) @ -No - Lab Data Result diagrams: 02/14/24 16:10 02/14/24 16:10 Lab Results 02/14/24 02/14/24 02/14/24 Range/Units 16:10 16:10 16:10 WBC 10.4 (3.8-10.6) k/uL RBC 5.36 (4.30-5.90) m/uL Hgb 16.3 (13.0-17.5) gm/dL Hct 47.1 (39.0-53.0) % MCV 87.9 (80.0-100.0) fL MCH 30.5 (25.0-35.0) pg MCHC 34.7 (31.0-37.0) g/dL RDW 12.7 (11.5-15.5) % Plt Count 322 (150-450) k/uL MPV 6.7 Neutrophils % 72 % Lymphocytes % 18 % Monocytes % 4 % Eosinophils % 4 % Basophils % 1 % Neutrophils # 7.5 (1.3-7.7) k/uL Lymphocytes # 1.9 (1.0-4.8) k/uL Monocytes # 0.4 (0-1.0) k/uL Eosinophils # 0.4 (0-0.7) k/uL Basophils # 0.1 (0-0.2) k/uL Sodium 140 (137-145) mmol/L Potassium 4.1 (3.5-5.1) mmol/L Chloride 108 H (98-107) mmol/L Carbon Dioxide 19 L (22-30) mmol/L Anion Gap 13 mmol/L BUN 18 (9-20) mg/dL Creatinine 0.88 (0.66-1.25) mg/dL Est GFR (CKD-EPI)AfAm >90 (>60 ml/min/1.73 sqM) Est GFR (CKD-EPI)NonAf >90 (>60 ml/min/1.73 sqM) Glucose 108 H (74-99) mg/dL Calcium 9.6 (8.4-10.2) mg/dL Total Bilirubin 1.0 (0.2-1.3) mg/dL AST 32 (17-59) U/L ALT 60 H (4-49) U/L Alkaline Phosphatase 60 (38-126) U/L Total Protein 6.7 (6.3-8.2) g/dL Albumin 4.5 (3.5-5.0) g/dL Influenza Type A (PCR) Not Detected (Not Detectd) Influenza Type B (PCR) Not Detected (Not Detectd) RSV (PCR) Not Detected (Not Detectd) SARS-CoV-2 (PCR) Not Detected (Not Detectd) Disposition Clinical Impression: Cough, Nausea and vomiting Disposition: HOME SELF-CARE Condition: Good Instructions (If sedation given, give patient instructions): Viral Syndrome (ED) Additional Instructions: Return to the emergency department for any new or worsening symptoms. Prescriptions: Albuterol Inhaler [Ventolin Hfa Inhaler] 1 - 2 puff INHALATION Q6H PRN #1 each PRN Reason: Shortness Of Breath Is patient prescribed a controlled substance at d/c from ED?: No Referrals: None,Stated [Primary Care Provider] - 1-2 days Time of Disposition: 20:44
[2024-02-14] MEDS: SODIUM CHLORIDE 0.9% 1,000 ML IV STA (18:41)
[2024-02-14] MEDS: ONDANSETRON 4 MG/2 ML VIAL IVP STA (18:41)
[2024-02-14] MEDS: IPRATROPIUM-ALBUTEROL 3 ML NEB INHALATION STA (21:32)
[2024-02-14 23:02] VITALS: BP 127/74; PULSE 82; RESP 16
== END 2024-02-14 21:48 | disposition home or self-care (01) ==
LOC: EC 15:54
DX: R11.2 Nausea with vomiting, unspecified (principal); R05.9 Cough, unspecified; R19.7 Diarrhea, unspecified; F17.290 Nicotine dependence, other tobacco product, uncomplicated; Z88.0 Allergy status to penicillin; Z91.013 Allergy to seafood; Z88.1 Allergy status to other antibiotic agents; Z88.8 Allergy status to other drugs, medicaments and biological substances
CPT/HCPCS: 36415; 94640; 93005; 80053; 85025; 87636; 71046; 99284; 96374; 96361; J2405

== ENCOUNTER 2024-02-25 04:11 | Emergency (ER) | payer OTHER ==
[2024-02-25] MEDS ORDERED: SODIUM CHLORIDE 0.9% 1,000 ML BAG ONE (04:30)
[2024-02-25] MEDS ORDERED: ACETAMINOPHEN SUPPOSITORY 650 MG SUPP RECTAL ONE (06:25)
[2024-02-25] MEDS ORDERED: ACETAMINOPHEN TAB 325 MG TAB ONE (06:26)
== END 2024-02-25 08:41 | disposition home or self-care (01) ==
LOC: EC 04:11
DX: U07.1 COVID-19 (principal)
CPT/HCPCS: 99283